=== PATIENT | female | born 1985 | race Caucasian/White ===

== ENCOUNTER 2021-10-08 10:16 | Inpatient (IN) | payer OTHER, MEDICAID, SELFPAY ==
[2021-10-08 10:29] VITALS: BP 134/97; BP 160/90; PULSE 100; PULSE 120; RESP 16; TEMP 36.1; O2SAT 98; O2SAT 99; BMI 29.9
--- NOTE | 2021-10-08 11:00 | PC.NURSE ---
This RN took a call from patient's friend/coworker who expresses concern over patient's current behavior. Per friend patient is normally very professional and put together. For the last few days patient has been acting abnormally and appears manic .
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
[2021-10-08 12:00] VITALS: BP 126/86; PULSE 100; RESP 16; O2SAT 99
--- NOTE | 2021-10-08 12:00 | PC.NURSE ---
Patient is alert and oriented. Thought and speech pattern seems somewhat erratic at times. respirations regular and even. Skin PWD. Patient is well kept, well appearing. Patient at first was reluctant to any diagnostics, at the bedside, patient's friend/supervisor toy assembly also here to express concerns. patient agreeable to some labwork and behavioral health consult.
[2021-10-08 12:18] LABS: Basophils Absolute Auto 0.1 X10*3/uL (0.0-0.2); Basophils Percent Auto 0.7 % (0-2); Eosinophils Absolute Auto 0.1 X10*3/uL (0.0-0.4); Eosinophils Percent Auto 0.6 % (0-4); Hematocrit 38.8 % (37.0-47.0); Hemoglobin 13.2 g/dl (12.0-16.0); Imm Gran Abs Auto 0.06 X10*3/uL (0.00-0.03); Imm Gran Pct Auto 0.4 % (0.0-0.4); Lymphocytes Absolute Auto 3.6 X10*3/uL (1.2-4.9); Lymphocytes Percent Auto 25.1 % (20-40); MANUAL DIFF FLAG NO; Mean Corpuscular Hemoglobin 28.8 pg (27.0-33.0); Mean Corpuscular Volume 84.7 fL (80.0-98.0); Mean Platelet Volume 9.9 fL (9.4-12.3); Monocytes Absolute Auto 0.9 X10*3/uL (0.1-1.2); Monocytes Percent Auto 6.4 % (2-11); Neutrophils Absolute Auto 9.7 x10*3/uL (2.0-8.3); Neutrophils Percent Auto 66.8 % (45-73); Platelet Count 335 X10*3/uL (160-400); Red Blood Count 4.58 X10*6/uL (4.20-5.50); Red Cell Distribution Width 14.2 % (11.0-16.0); White Blood Count 14.5 X10*3/uL (4.8-10.8)
[2021-10-08 12:34] LABS: COVID-19 Test Negative (Negative)
[2021-10-08 12:46] LABS: Ethanol < 10 mg/dL
[2021-10-08 12:48] LABS: Alanine Aminotransferase 26 U/L (0-31); Albumin Level 4.8 g/dL (3.5-5.0); Alkaline Phosphatase 108 U/L (39-117); Anion Gap 13 (12-20); Aspartate Amino Transferase 26 U/L (5-31); Bilirubin Direct 0.2 mg/dL (0.0-0.5); Bilirubin Total 0.6 mg/dL (0.0-1.0); Blood Urea Nitrogen 8 mg/dL (9-16); Calcium 9.5 mg/dL (8.4-10.2); Carbon Dioxide 24 mmol/L (22-29); Chloride 106 mmol/L (96-108); Creatinine Clr Calc Pharmacy 105.5; Estimated Glomerular Filt Rate > 60; Glucose Random 106 mg/dL (60-115); Potassium 4.4 mmol/L (3.3-5.1); Sodium 139 mmol/L (135-145); Total Protein 7.6 g/dL (6.5-8.0)
[2021-10-08 14:20] VITALS: BP 141/82; PULSE 90; RESP 15; O2SAT 98
[2021-10-08 15:51] LABS: Appearance Urine CLEAR; Color Urine YELLOW; Glucose Urine UA NEG (NEG); Leukocyte Esterase Urine NEG (NEG); Nitrite Urine NEG (NEG); PH 7.5 (5.0-8.0); Urine Blood NEG (NEG); Urine Ketones NEG (NEG); Urine Protein NEG (NEG-TRACE)
[2021-10-08 15:55] LABS: UPreg QC Valid YES; Urine Pregnancy NEGATIVE (NEGATIVE)
[2021-10-08 16:04] LABS: Barbiturates, Urine Not Detected (Not Detect); Benzodiazepines Screen Urine Not Detected (Not Detect); Cannabinoid Screen Urine POSITIVE (Not Detect); Cocaine Screen Urine Not Detected (Not Detect); Fentanyl, urine Not Detected (Not Detect); Opiate Screen Urine Not Detected (Not Detect); Phencyclidine Screen Urine Not Detected (Not Detect)
[2021-10-08 16:08] LABS: Amphetamine Screen Urine Not Detected (Not Detect)
[2021-10-08] MEDS: Omeprazole 20 MG CAPSULE.DR PO (20:52)
[2021-10-08] MEDS: hydrOXYzine HCL 50 MG TABLET 100 MG PO (21:24)
[2021-10-08] MEDS: traZODone HCL 50 MG TABLET PO (21:24)
[2021-10-09 03:28] VITALS: BP 137/82; PULSE 74; RESP 16; TEMP 36.2; O2SAT 99
--- NOTE | 2021-10-09 06:19 | PC.NURSE ---
Patient slept through the night, no distress observed/reported, behavior erratic but non concerning, medication compliant, patient was assessed by care team, disposition pending, patient will be reevaluated by care team in the morning, alert and oriented x 4, VSS, will continue to monitor.
--- NOTE | 2021-10-09 07:06 | PC.NURSE ---
patient appears to remain at rest, periodically requests assistance to makes phone calls, appears in no distress. socializing w peers ad marissa.
[2021-10-09] MEDS: lamoTRIgine 25 MG TABLET 150 MG PO (08:01)
[2021-10-09] MEDS: ARIPiprazole 10 MG TABLET PO (08:02)
[2021-10-09 09:12] VITALS: BP 145/90; PULSE 74; RESP 16; TEMP 36.6; O2SAT 98
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
--- NOTE | 2021-10-09 15:00 | PHA.MEDREC ---
Pharmacy Consult ? Medication Reconciliation Pharmacy has reviewed the medication reconciliation by
[2021-10-09 15:55] VITALS: BP 134/91; PULSE 84; RESP 16; TEMP 36.6; O2SAT 99; BMI 30.2
[2021-10-09 18:52] VITALS: BP 109/78; PULSE 96; RESP 16; TEMP 36.4; O2SAT 98
[2021-10-09] MEDS: Lithium Carbonate ER 450 MG TABLET.ER PO (19:39)
--- NOTE | 2021-10-09 21:15 | PC.ADMIT ---
Pt is a 35years old female admitted on CV for Bipolar. Pt is alert and oriented x4, Covid negative, Tox screen positive for THC. Pt was accompanied by who expressed concerns about Pt going home. Pt reports feeling anxious, denies SI/HI. Pt denies AH/VH at this time. Pt endorsed smoking marijuana and cigarette occasionally. Speech is normal with regular rhythm, tone and yesica. Pt is calm and cooperative, mood is labile with intense eye contact. Pt has a fair affect and showing bubbly mood. Insight and judgment are poor at this time. Admission
[2021-10-09] MEDS: traZODone HCL 50 MG TABLET PO (22:19)
[2021-10-10 06:00] VITALS: BP 119/70; PULSE 82; RESP 18; TEMP 36.6; O2SAT 99
[2021-10-10] MEDS: ARIPiprazole 15 MG TABLET PO (08:18)
[2021-10-10] MEDS: hydrOXYzine HCL 50 MG TABLET 100 MG PO ×2 (08:18→17:37)
[2021-10-10] MEDS: lamoTRIgine 25 MG TABLET 150 MG PO (08:18)
[2021-10-10 08:45] LABS: Estimated Average Glucose 91 mg/dL; Hemoglobin A1c % 4.8 %
[2021-10-10 09:00] LABS: Cholesterol 170 mg/dL; HDL Cholesterol 43 mg/dL; LDL Cholesterol Calculated 90 mg/dl; Magnesium 2.1 mg/dL (1.6-2.6); Triglycerides 186 mg/dL
[2021-10-10 09:07] LABS: Free T4 (Free Thyroxine) 1.24 ng/dL (0.71-1.85); Thyroid Stimulating Hormone 1.84 uIU/mL (0.32-4.0)
[2021-10-10 09:26] LABS: Folate 15.4 ng/mL (> or = 4.0); Vitamin B12 > 2000 pg/mL (200-900)
[2021-10-10 16:32] VITALS: BP 133/83; PULSE 83; TEMP 37; O2SAT 100
[2021-10-10] MEDS: traZODone HCL 50 MG TABLET PO (20:45)
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
[2021-10-11] MEDS: hydrOXYzine HCL 50 MG TABLET 100 MG PO (05:12)
[2021-10-11] MEDS: ARIPiprazole 15 MG TABLET PO (08:24)
[2021-10-11] MEDS: lamoTRIgine 25 MG TABLET 150 MG PO (08:24)
[2021-10-11 09:30] VITALS: BP 137/83; PULSE 92; TEMP 36.5
[2021-10-11 19:50] VITALS: BP 115/71; PULSE 77; TEMP 36.1; O2SAT 100
[2021-10-11] MEDS: metFORMIN HCl ER 500 MG TAB.ER.24H PO (20:44)
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
[2021-10-12] MEDS: hydrOXYzine HCL 50 MG TABLET 100 MG PO ×2 (01:33→21:26)
[2021-10-12] MEDS: traZODone HCL 50 MG TABLET PO ×2 (01:33→21:25)
[2021-10-12 06:00] VITALS: BP 138/85; PULSE 96; RESP 18; TEMP 36.7; O2SAT 98
[2021-10-12] MEDS: ARIPiprazole 15 MG TABLET PO (09:02)
[2021-10-12] MEDS: lamoTRIgine 25 MG TABLET 150 MG PO (09:02)
--- NOTE | 2021-10-12 10:16 | P.PNPSI_ITS ---
Subjective Subjective Date of Service: 10/12/21 Reason For Visit: Bipolar disorder Subjective Notes: [place] Warning and Conditional Voluntary Interim History: Patient seen and discussed with team. Patient evaluated today and upon interview she says she doesnt feel comfortable here, wants to go home. Has been med adherent. Feels safe, denies SI/SIB. Says her visited. Says she is sleeping. Pleasant, cooperative, found napping in her room. In the milieu, patient is safe and appropriate in behavior. Denies irritability or assaultive ideation. Denies A/VH. Medication Compliance: Yes Side effects from medications: No Attending Groups: Intermittent Review of Systems Acute medical concerns: No Medical Review of Systems: unchanged Mental Status Exam Mental Status Exam Narrative: Appearance: Appropriate Patient Orientation: Person, Place, Time and Situation Level of Consciousness: Restless and Alert Patient Behavior: Talkative, Hyperactive, Cooperative, Restless, Wandering, Anxious, Distractible, Good Eye Contact and Impulsive Mood Description: Cheerful and Labile Affect Description: Labile Patient Cognition Impaired: No Ability to Follow Directions: Good Speech Pattern: Spontaneous Speech and Pressured Memory Description: Intact Hallucinations: None Delusions: Not Present and Grandiose (mild) Perceptual Disturbances: Derealization Thought Process: Distracted Thought Content: positive for Racing and positive for Tangential Depressive Symptoms: Increased Irritability Abnormal Motor Activity Signs and Symptoms: Restlessness Judgment: Fair Diagnostics Vital Signs (24Hr): Vital Signs - 24 hr 10/11/21 19:50 10/12/21 06:00 Temperature 96.9 F 98.1 F Pulse Rate 77 96 Respiratory Rate 18 Blood Pressure 115/71 138/85 Pulse Oximetry 100 98 Oxygen Delivery Method Room Air Room Air BMI result Body Mass Index 30.2 Labs Results: 10/08/21 12:12 10/08/21 12:12 Medications Medications Current Medications Acetaminophen (Acetaminophen 325 Mg Tablet) 650 mg PO Q6H PRN PRN Reason: Headache/Pain Mild Scale (1-3) Al Hydroxide/Mg Hydroxide (Magnesium Hydrox/Alum Hydrox 30 Ml Oral.Susp) 30 ml PO Q6H PRN PRN Reason: Heartburn/Nausea Aripiprazole (Aripiprazole 15 Mg Tablet) 15 mg PO DAILY TARI Last Admin: 10/12/21 09:02 Dose: 15 mg Hydroxyzine HCl (Hydroxyzine Hcl 50 Mg Tablet) 100 mg PO BID PRN PRN Reason: Anxiety Last Admin: 10/12/21 01:33 Dose: 100 mg Lamotrigine (Lamotrigine 25 Mg Tablet) 150 mg PO DAILY TARI Last Admin: 10/12/21 09:02 Dose: 150 mg Magnesium Hydroxide (Milk Of Magnesia 30 Ml Oral.Susp) 30 ml PO DAILY PRN PRN Reason: Constipation Metformin HCl (Metformin Hcl Er 500 Mg Tab.Er.24h) 500 mg PO BEDTIME TARI Last Admin: 10/11/21 20:44 Dose: 500 mg Trazodone HCl (Trazodone Hcl 50 Mg Tablet) 50 mg PO BEDTIME PRN PRN Reason: Insomnia Last Admin: 10/12/21 01:33 Dose: 50 mg Allergies Allergies Allergy/AdvReac Type Severity Reaction Status Date / Time Penicillins [PENICILLINS] Allergy Unknown UNKNOWN Verified 10/08/21 23:06 topiramate [From TOPAMAX] Allergy Unknown UNKNOWN Verified 10/08/21 23:06 Assessment & Plan Assessment & Plan (1) Bipolar affective psychosis: Status: Acute Code(s): F31.9 - Bipolar disorder, unspecified Plan Manic episode. Suggest admission, agrees. Pt to consider Increase Abilify to 15 mg daily [place] ER 450 mg HS 10/11: Pt declines lithium, refusing. Per staff, pt did not sleep all night, however pt denies this and says she has been sleeping and napping. Reports benefit on hydroxyzine and trazodone for sleep. Tolerating abilify increase but concerned with wt gain, willing to trial metformin. 10/12: Utilizing hydroxyzine, sleep improved. Tolerating medications, continue to monitor abilify for benefit. I spent minutes with the patient and/or on the patient floor today, greater than?50% of which was spent counseling/coordinating care. Patient educated on: medication risk/benefits and therapeutic strategies Reason for contiued inpatient stay Substantial Risk for: med/psych decompensation
--- NOTE | 2021-10-12 10:16 | HO.PSYCHPN ---
Subjective Subjective Date of Service: 10/11/21 Reason For Visit: Bipolar disorder Subjective Notes: [place] Warning and Conditional Voluntary Healthcare Proxy: No Guardianship: No Medical Problems Affecting Mental Status: No Interim History: Patient seen and discussed with team. Patient evaluated today and upon interview Manic, didnt sleep last night Feeling better, sleep is important. Trazodone is working, hydroxzyine is working.? 2020- most of the time feels hungry.? Doesnt want lithium Wants metformin Denies AH, no si/sib, nothing, no anxiety. Energy is good in the day but sleeping.? In the milieu, patient is safe and appropriate in behavior. Denies SI/SIB/HI upon inquiry. Denies irritability or assaultive ideation. Says he feels safe. Diagnostics Vital Signs (24Hr): Vital Signs - 24 hr 10/11/21 19:50 10/12/21 06:00 Temperature 96.9 F 98.1 F Pulse Rate 77 96 Respiratory Rate 18 Blood Pressure 115/71 138/85 Pulse Oximetry 100 98 Oxygen Delivery Method Room Air Room Air BMI result Body Mass Index 30.2 Labs Results: 10/08/21 12:12 10/08/21 12:12 Medications Medications Current Medications Acetaminophen (Acetaminophen 325 Mg Tablet) 650 mg PO Q6H PRN PRN Reason: Headache/Pain Mild Scale (1-3) Al Hydroxide/Mg Hydroxide (Magnesium Hydrox/Alum Hydrox 30 Ml Oral.Susp) 30 ml PO Q6H PRN PRN Reason: Heartburn/Nausea Aripiprazole (Aripiprazole 15 Mg Tablet) 15 mg PO DAILY TARI Last Admin: 10/12/21 09:02 Dose: 15 mg Hydroxyzine HCl (Hydroxyzine Hcl 50 Mg Tablet) 100 mg PO BID PRN PRN Reason: Anxiety Last Admin: 10/12/21 01:33 Dose: 100 mg Lamotrigine (Lamotrigine 25 Mg Tablet) 150 mg PO DAILY TARI Last Admin: 10/12/21 09:02 Dose: 150 mg Magnesium Hydroxide (Milk Of Magnesia 30 Ml Oral.Susp) 30 ml PO DAILY PRN PRN Reason: Constipation Metformin HCl (Metformin Hcl Er 500 Mg Tab.Er.24h) 500 mg PO BEDTIME TARI Last Admin: 10/11/21 20:44 Dose: 500 mg Trazodone HCl (Trazodone Hcl 50 Mg Tablet) 50 mg PO BEDTIME PRN PRN Reason: Insomnia Last Admin: 10/12/21 01:33 Dose: 50 mg Allergies Allergies Allergy/AdvReac Type Severity Reaction Status Date / Time Penicillins [PENICILLINS] Allergy Unknown UNKNOWN Verified 10/08/21 23:06 topiramate [From TOPAMAX] Allergy Unknown UNKNOWN Verified 10/08/21 23:06 Assessment & Plan Assessment & Plan (1) Bipolar affective psychosis: Status: Acute Code(s): F31.9 - Bipolar disorder, unspecified Plan Manic episode. Suggest admission, agrees. Pt to consider Increase Abilify to 15 mg daily [place] ER 450 mg HS I spent minutes with the patient and/or on the patient floor today, greater than?50% of which was spent counseling/coordinating care.
[2021-10-12 18:00] VITALS: BP 130/91; PULSE 99; RESP 18; TEMP 37; O2SAT 100
[2021-10-12] MEDS: Acetaminophen 325 MG TABLET 650 MG PO (19:24)
[2021-10-12] MEDS: metFORMIN HCl ER 500 MG TAB.ER.24H PO (21:25)
[2021-10-13 06:00] VITALS: BP 128/89; PULSE 87; RESP 16; TEMP 36.9; O2SAT 99
[2021-10-13] MEDS: ARIPiprazole 15 MG TABLET PO (08:19)
[2021-10-13] MEDS: lamoTRIgine 25 MG TABLET 150 MG PO (08:19)
[2021-10-13] MEDS: hydrOXYzine HCL 50 MG TABLET 100 MG PO ×2 (15:10→21:18)
--- NOTE | 2021-10-13 17:24 | P.PNPSI_ITS ---
Subjective Subjective Date of Service: 10/14/21 Reason For Visit: Bipolar disorder Subjective Notes: [place] Warning and Conditional Voluntary Healthcare Proxy: No Guardianship: No Medical Problems Affecting Mental Status: No Interim History: Patient seen and discussed with team. Patient evaluated today and upon interview she reports she discussed with SW about discharge tomorrow. Continues to have some GI SE from metformin but wants to continue trial for metabolic SE. Her visited twice today. Says she is feeling better, feels safe, no voices, no nothing. Insightful about her h ypomanic/ manic episodes. In the milieu, patient is safe and appropriate in behavior. Denies SI/SIB/HI upon inquiry. Denies irritability or assaultive ideation. Mental Status Exam Mental Status Exam Narrative: Appearance: Appropriate Patient Orientation: Person, Place, Time and Situation Level of Consciousness: Restless and Alert Patient Behavior: Talkative, Hyperactive, Cooperative, Restless, Wandering, Anxious, Distractible, Good Eye Contact and Impulsive Mood Description: Cheerful and Labile Affect Description: Labile Patient Cognition Impaired: No Ability to Follow Directions: Good Speech Pattern: Spontaneous Speech and Pressured Memory Description: Intact Hallucinations: None Delusions: Not Present and Grandiose (mild) Perceptual Disturbances: Derealization Thought Process: Distracted Thought Content: positive for Racing and positive for Tangential Depressive Symptoms: Increased Irritability Abnormal Motor Activity Signs and Symptoms: Restlessness Judgment: Fair Diagnostics Vital Signs (24Hr): Vital Signs - 24 hr 10/12/21 18:00 10/13/21 06:00 Temperature 98.6 F 98.4 F Pulse Rate 99 87 Respiratory Rate 18 16 Blood Pressure 130/91 H 128/89 Pulse Oximetry 100 99 Oxygen Delivery Method Room Air BMI result Body Mass Index 30.2 Labs Results: 10/08/21 12:12 10/15/21 08:04 Medications Medications Current Medications Acetaminophen (Acetaminophen 325 Mg Tablet) 650 mg PO Q6H PRN PRN Reason: Headache/Pain Mild Scale (1-3) Last Admin: 10/12/21 19:24 Dose: 650 mg Al Hydroxide/Mg Hydroxide (Magnesium Hydrox/Alum Hydrox 30 Ml Oral.Susp) 30 ml PO Q6H PRN PRN Reason: Heartburn/Nausea Aripiprazole (Aripiprazole 15 Mg Tablet) 15 mg PO DAILY TARI Last Admin: 10/13/21 08:19 Dose: 15 mg Hydroxyzine HCl (Hydroxyzine Hcl 50 Mg Tablet) 100 mg PO BID PRN PRN Reason: Anxiety Last Admin: 10/13/21 15:10 Dose: 100 mg Lamotrigine (Lamotrigine 25 Mg Tablet) 150 mg PO DAILY [facility] Last Admin: 10/13/21 08:19 Dose: 150 mg Magnesium Hydroxide (Milk Of Magnesia 30 Ml Oral.Susp) 30 ml PO DAILY PRN PRN Reason: Constipation Metformin HCl (Metformin Hcl Er 500 Mg Tab.Er.24h) 500 mg PO BEDTIME TARI Last Admin: 10/12/21 21:25 Dose: 500 mg Trazodone HCl (Trazodone Hcl 50 Mg Tablet) 50 mg PO BEDTIME PRN PRN Reason: Insomnia Last Admin: 10/12/21 21:25 Dose: 50 mg Allergies Allergies Allergy/AdvReac Type Severity Reaction Status Date / Time Penicillins [PENICILLINS] Allergy Unknown UNKNOWN Verified 10/08/21 23:06 topiramate [From TOPAMAX] Allergy Unknown UNKNOWN Verified 10/08/21 23:06 Assessment & Plan Assessment & Plan (1) Bipolar affective psychosis: Status: Acute Code(s): F31.9 - Bipolar disorder, unspecified Plan Manic episode. Suggest admission, agrees. Pt to consider Increase Abilify to 15 mg daily [place] ER 450 mg HS 10/11: Pt declines lithium, refusing. Per staff, pt did not sleep all night, however pt denies this and says she has been sleeping and napping. Reports benefit on hydroxyzine and trazodone for sleep. Tolerating abilify increase but concerned with wt gain, willing to trial metformin. 10/12: Utilizing hydroxyzine, sleep improved. Tolerating medications, continue to monitor abilify for benefit. 10/13: No med changes, pt reports feeling better, sleep is improved, progressing back to baseline. I spent minutes with the patient and/or on the patient floor today, greater than?50% of which was spent counseling/coordinating care. Patient educated on: diagnosis and therapeutic strategies Reason for contiued inpatient stay Substantial Risk for: med/psych decompensation
[2021-10-13 18:00] VITALS: BP 128/72; PULSE 82; TEMP 36.8; O2SAT 99
[2021-10-13] MEDS: traZODone HCL 50 MG TABLET PO (21:18)
[2021-10-13] MEDS: metFORMIN HCl ER 500 MG TAB.ER.24H PO (21:20)
[2021-10-14 06:00] VITALS: BP 132/88; PULSE 92; RESP 18; TEMP 36.7; O2SAT 99
[2021-10-14] MEDS: lamoTRIgine 25 MG TABLET 150 MG PO (08:27)
[2021-10-14] MEDS: ARIPiprazole 15 MG TABLET PO (08:27)
[2021-10-14] MEDS: hydrOXYzine HCL 50 MG TABLET 100 MG PO ×2 (16:00→20:00)
--- NOTE | 2021-10-14 17:24 | HO.PSYCHPN ---
Subjective Subjective Date of Service: 10/14/21 Reason For Visit: Bipolar disorder Interim History: I spoke with team. Today pt reports she feels better, her came in today twice to visit. She now denies GI distress on metformin. She says she is hoping this helps with her wt gain, as she has been told by her PCP she is overweight over 40 lbs, feels bad about this. She woke up at 3am last night, I felt anxiety and it took a while to go back to sleep. Was anxious because she wants to go home. However, overall sleep is improved and pt says her mood is better. Feeling relaxed today. Hopeful for discharge tomorrow. Medication Compliance: Yes Side effects from medications: No Attending Groups: Intermittent Review of Systems Acute medical concerns: No Medical Review of Systems: unchanged Mental Status Exam Mental Status Exam Narrative: Appearance: Appropriate Patient Orientation: Person, Place, Time and Situation Level of Consciousness: Restless and Alert Patient Behavior: Talkative, Hyperactive, Cooperative, Restless, Wandering, Anxious, Distractible, Good Eye Contact and Impulsive Mood Description: Cheerful and Labile Affect Description: Labile Patient Cognition Impaired: No Ability to Follow Directions: Good Speech Pattern: Spontaneous Speech and Pressured Memory Description: Intact Hallucinations: None Delusions: Not Present and Grandiose (mild) Perceptual Disturbances: Derealization Thought Process: Distracted Thought Content: positive for Racing and positive for Tangential Depressive Symptoms: Increased Irritability Abnormal Motor Activity Signs and Symptoms: Restlessness Judgment: Fair Diagnostics Vital Signs (24Hr): Vital Signs - 24 hr 10/13/21 18:00 10/14/21 06:00 Temperature 98.2 F 98.1 F Pulse Rate 82 92 Respiratory Rate 18 Blood Pressure 128/72 132/88 Pulse Oximetry 99 99 Oxygen Delivery Method Room Air BMI result Body Mass Index 30.2 Labs Results: 10/08/21 12:12 10/15/21 08:04 Medications Medications Current Medications Acetaminophen (Acetaminophen 325 Mg Tablet) 650 mg PO Q6H PRN PRN Reason: Headache/Pain Mild Scale (1-3) Last Admin: 10/12/21 19:24 Dose: 650 mg Al Hydroxide/Mg Hydroxide (Magnesium Hydrox/Alum Hydrox 30 Ml Oral.Susp) 30 ml PO Q6H PRN PRN Reason: Heartburn/Nausea Aripiprazole (Aripiprazole 15 Mg Tablet) 15 mg PO DAILY [facility]ARI Last Admin: 10/14/21 08:27 Dose: 15 mg Hydroxyzine HCl (Hydroxyzine Hcl 50 Mg Tablet) 100 mg PO BID PRN PRN Reason: Anxiety Last Admin: 10/14/21 16:00 Dose: 100 mg Lamotrigine (Lamotrigine 25 Mg Tablet) 150 mg PO DAILY [facility] Last Admin: 10/14/21 08:27 Dose: 150 mg Magnesium Hydroxide (Milk Of Magnesia 30 Ml Oral.Susp) 30 ml PO DAILY PRN PRN Reason: Constipation Metformin HCl (Metformin Hcl Er 500 Mg Tab.Er.24h) 500 mg PO BEDTIME [facility] Last Admin: 10/13/21 21:20 Dose: 500 mg Trazodone HCl (Trazodone Hcl 50 Mg Tablet) 50 mg PO BEDTIME MRX1 PRN PRN Reason: Insomnia Last Admin: 10/13/21 21:18 Dose: 50 mg Allergies Allergies Allergy/AdvReac Type Severity Reaction Status Date / Time Penicillins [PENICILLINS] Allergy Unknown UNKNOWN Verified 10/08/21 23:06 topiramate [From TOPAMAX] Allergy Unknown UNKNOWN Verified 10/08/21 23:06 Assessment & Plan Assessment & Plan (1) Bipolar affective psychosis: Status: Acute Code(s): F31.9 - Bipolar disorder, unspecified Plan Manic episode. Suggest admission, agrees. Pt to consider Increase Abilify to 15 mg daily [place] ER 450 mg HS 10/11: Pt declines lithium, refusing. Per staff, pt did not sleep all night, however pt denies this and says she has been sleeping and napping. Reports benefit on hydroxyzine and trazodone for sleep. Tolerating abilify increase but concerned with wt gain, willing to trial metformin. 10/12: Utilizing hydroxyzine, sleep improved. Tolerating medications, continue to monitor abilify for benefit. 10/13: No med changes, pt reports feeling better, sleep is improved, progressing back to baseline. 10/14: No med changes, pt looking forward to discharge tomorrow I spent minutes with the patient and/or on the patient floor today, greater than?50% of which was spent counseling/coordinating care. Patient educated on: medication risk/benefits Reason for contiued inpatient stay Substantial Risk for: med/psych decompensation
[2021-10-14 18:00] VITALS: BP 130/75; PULSE 90; TEMP 36.8; O2SAT 100
[2021-10-14] MEDS: metFORMIN HCl ER 500 MG TAB.ER.24H PO (20:00)
[2021-10-14] MEDS: traZODone HCL 50 MG TABLET PO (20:00)
[2021-10-15 06:00] VITALS: BP 116/71; PULSE 84; RESP 16; TEMP 37.1; O2SAT 97
[2021-10-15] MEDS: lamoTRIgine 25 MG TABLET 150 MG PO (08:18)
[2021-10-15] MEDS: ARIPiprazole 15 MG TABLET PO (08:19)
[2021-10-15 09:09] LABS: Creatinine Clr Calc Pharmacy 111.5; Estimated Glomerular Filt Rate > 60
[2021-10-15] MEDS: hydrOXYzine HCL 50 MG TABLET 100 MG PO (09:32)
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
== END 2021-10-15 13:17 | disposition home or self-care (01) | DRG 753 ==
LOC: HO.ED 17:33 → HO.PM5 10-09 14:51
PROVIDERS: Clinical Nurse Specialist Psychiatric/Mental Health, Adult; Admitting Provider Psychiatry & Neurology Psychiatry; Emergency Provider Emergency Medicine; Visit Provider Psychiatry & Neurology Psychiatry
DX: F31.81 Bipolar II disorder (principal); F17.210 Nicotine dependence, cigarettes, uncomplicated; I10 Essential (primary) hypertension; Z20.822 Contact with and (suspected) exposure to COVID-19; Z71.6 Tobacco abuse counseling; Z88.0 Allergy status to penicillin; Z88.8 Allergy status to other drugs, medicaments and biological substances; Z79.84 Long term (current) use of oral hypoglycemic drugs; Z79.899 Other long term (current) drug therapy
CPT/HCPCS: 36415; 80048; 80061; 80076; 80307; 81003; 81025; 82077; 82565; 82607; 82746; 83036; 83735; 84439; 84443; 85025; 87635; 99285

== ENCOUNTER 2022-02-17 15:23 | Inpatient (IN) | payer OTHER, MEDICAID, SELFPAY ==
--- NOTE | ~2022-02-17 | US_ITS ---
EXAMINATION: US RETROPERITONEAL LIMITED (RENAL ONLY) CLINICAL INFORMATION: Pain. COMPARISON: None TECHNIQUE: Real-time imaging of the kidneys. FINDINGS: RIGHT KIDNEY: 10.1 x 4.5 x 5.3 cm (SAG x AP x TRV). The kidney is normal in size, contour, and echogenicity. Renal cortical thickness is normal. No calculi or focal parenchymal lesions. No hydronephrosis. LEFT KIDNEY: 9.8 x 5.3 x 5.3 cm (SAG x AP x TRV). The kidney is normal in size, contour, and echogenicity. Renal cortical thickness is normal. No calculi or focal parenchymal lesions. No hydronephrosis. US/US renal BI IMPRESSION: No hydronephrosis or nephrolithiasis.
--- NOTE | ~2022-02-17 | CT_ITS ---
EXAMINATION: CT ABDOMEN AND PELVIS WITHOUT CONTRAST CLINICAL INFORMATION: Nausea and vomiting. COMPARISON: None TECHNIQUE: Multidetector volumetric imaging was performed from the superior aspect of the liver through the pubic symphysis. Sagittal and coronal reformatted images were obtained on the technologist's workstation. This CT examination was performed using dose optimization techniques as appropriate, variously including the following: *Automated exposure control *Adjustment of mA and/or kV according to patient size (this includes techniques or standardized protocols for targeted exams where dose is matched to indication/reason for exam; i.e. extremities or head) *Use of iterative reconstruction technique DLP: 611 mGy-cm FINDINGS: LUNG BASES: The visualized lung bases are unremarkable. LIVER, GALLBLADDER, AND BILIARY TREE: The liver is normal in size, shape, and attenuation. No focal hepatic lesion or biliary ductal dilatation is present. The gallbladder is unremarkable with no evidence of radiopaque gallstones, gallbladder wall thickening, or obvious pericholecystic inflammatory changes. PANCREAS: Unremarkable. SPLEEN: Unremarkable. ADRENAL GLANDS: Unremarkable. KIDNEYS AND URETERS: The kidneys are normal in size, shape, and attenuation. No hydronephrosis, hydroureter, or calculi seen. No perinephric stranding. BLADDER: Unremarkable. GASTROINTESTINAL TRACT: No acute abnormality of the bowel. There is no bowel wall thickening /edema. There is no bowel obstruction. There is a moderate to large volume of stool in the colon. The appendix is normal . The small bowel loops are unremarkable. The stomach is normal. There is no hiatal hernia. ABDOMINAL WALL: No significant hernia is appreciated. LYMPH NODES: Normal. VASCULAR: Unremarkable. PELVIC VISCERA: Pelvic mass measuring 8.3 x 7.6 x 8.1 cm at the mid anterior pelvis. This contains fatty components and fluid as well as a small calcification. This is consistent with a dermoid. Likely emanating from the right adnexa. Uterus and left ovary displaced toward the left side of the pelvis by this mass. Trace fluid in the cul-de-sac. OSSEOUS STRUCTURES: Unremarkable. CT/CT abdomen pelvis wo IV con IMPRESSION: Pelvic mass consistent with a dermoid. Fleischner guidelines were followed.
[2022-02-17 15:53] VITALS: BP 126/90; BP 145/83; PULSE 100; PULSE 92; RESP 18; TEMP 37.1; O2SAT 100; O2SAT 99; BMI 31.1
[2022-02-17 16:37] LABS: COVID-19 Test Negative (Negative); IDNOW Serial# 55D5AD1C
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
[2022-02-17 17:07] LABS: Amphetamine Screen Urine Not Detected (Not Detect); Barbiturates, Urine Not Detected (Not Detect); Benzodiazepines Screen Urine Not Detected (Not Detect); Cannabinoid Screen Urine POSITIVE (Not Detect); Cocaine Screen Urine Not Detected (Not Detect); Fentanyl, urine Not Detected (Not Detect); Opiate Screen Urine Not Detected (Not Detect); Phencyclidine Screen Urine Not Detected (Not Detect)
[2022-02-17] MEDS: Nicotine Polacrilex 2 MG GUM BUCCAL (18:37)
[2022-02-17 19:56] LABS: Basophils Absolute Auto 0.1 X10*3/uL (0.0-0.2); Basophils Percent Auto 0.7 % (0-2); Eosinophils Absolute Auto 0.1 X10*3/uL (0.0-0.4); Eosinophils Percent Auto 0.6 % (0-4); Hemoglobin 13.7 g/dl (12.0-16.0); Imm Gran Abs Auto 0.05 X10*3/uL (0.00-0.03); Imm Gran Pct Auto 0.3 % (0.0-0.4); Lymphocytes Absolute Auto 6.4 X10*3/uL (1.2-4.9); Lymphocytes Percent Auto 43.5 % (20-40); MANUAL DIFF FLAG SCAN; Mean Corpuscular HGB Conc 33.4 g/dl (31.0-35.0); Mean Corpuscular Hemoglobin 28.1 pg (27.0-33.0); Mean Platelet Volume 10.8 fL (9.4-12.3); Monocytes Absolute Auto 0.9 X10*3/uL (0.1-1.2); Monocytes Percent Auto 6.2 % (2-11); Neutrophils Absolute Auto 7.1 x10*3/uL (2.0-8.3); Neutrophils Percent Auto 48.7 % (45-73); Platelet Count 347 X10*3/uL (160-400); Red Blood Count 4.88 X10*6/uL (4.20-5.50); Red Cell Distribution Width 14.6 % (11.0-16.0); SCAN SMEAR FLAG 1; White Blood Count 14.6 X10*3/uL (4.8-10.8)
[2022-02-17 19:59] LABS: SLIDE REVIEW VERIFIED
[2022-02-17 20:19] LABS: Acetaminophen LAB < 1 mcg/mL (<30); Alanine Aminotransferase 21 U/L (0-31); Albumin Level 4.9 g/dL (3.5-5.0); Alkaline Phosphatase 89 U/L (39-117); Anion Gap 16 (12-20); Aspartate Amino Transferase 22 U/L (5-31); Blood Urea Nitrogen 11 mg/dL (9-16); Calcium 9.8 mg/dL (8.4-10.2); Carbon Dioxide 26 mmol/L (22-29); Chloride 104 mmol/L (96-108); Creatinine Clr Calc Pharmacy 102.5; Estimated Glomerular Filt Rate > 60; Ethanol < 10 mg/dL; Glucose Random 89 mg/dL (60-115); Magnesium 2.1 mg/dL (1.6-2.6); Potassium 4.5 mmol/L (3.3-5.1); Salicylate < 5.0 mg/dL (15-30); Sodium 141 mmol/L (135-145); Total Protein 7.7 g/dL (6.5-8.0)
[2022-02-17 20:34] LABS: Bilirubin Total 0.3 mg/dL (0.0-1.0)
--- NOTE | 2022-02-17 20:39 | PHA.MEDREC ---
Pharmacy Consult ? Medication Reconciliation Pharmacy has completed the medication reconciliation. Reviewed med rec done by nursing
[2022-02-18] MEDS: traZODone HCL 50 MG TABLET PO ×2 (00:28→22:02)
[2022-02-18] MEDS: Nicotine Polacrilex 2 MG GUM BUCCAL ×4 (00:28→22:04)
[2022-02-18] MEDS: hydrOXYzine HCL 50 MG TABLET PO ×2 (00:28→22:02)
[2022-02-18 00:30] VITALS: BP 127/75; PULSE 74; RESP 17; TEMP 36.2; O2SAT 98
--- NOTE | 2022-02-18 06:16 | PC.NURSE ---
Patient slept through the night, no distress observed/reported, behavior non concerning, medication compliant, disposition per care team APRIL follow up, reevaluation in the morning pending psych consult, psych consult ordered, VSS. will continue to monitor.
[2022-02-18 07:33] VITALS: BP 143/86; PULSE 92; RESP 17; TEMP 36.4; O2SAT 98
[2022-02-18] MEDS: lamoTRIgine 100 MG TABLET 150 MG PO (07:57)
[2022-02-18] MEDS: ARIPiprazole 15 MG TABLET PO (07:57)
--- NOTE | 2022-02-18 09:38 | PC.NURSE ---
[facility], calm and cooperative, pleasant in convo, ate all of breakfast. took hs meds. awaiting care team f/u this am. nad.
--- NOTE | 2022-02-18 11:46 | PC.NURSE ---
care team at bedside for follow up eval
--- NOTE | 2022-02-18 15:43 | MHC.CARE ---
CARE Team speaks with pt's upon receiving a request to contact him. Mr Catracho was advised of the plan for his and what an inpatient stay most often looks like for a patient.
[2022-02-18 20:15] VITALS: BP 126/78; PULSE 90; RESP 16; TEMP 36.1; O2SAT 100
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
[2022-02-18] MEDS: metFORMIN HCl ER 500 MG TAB.ER.24H PO (22:02)
[2022-02-19 07:00] VITALS: BMI 28.7
[2022-02-19 08:15] VITALS: BP 131/82; PULSE 79; RESP 18; TEMP 36.6; O2SAT 96
[2022-02-19 08:57] LABS: Estimated Average Glucose 111 mg/dL; Hemoglobin A1c % 5.5 %
[2022-02-19] MEDS: lamoTRIgine 100 MG TABLET 150 MG PO (09:07)
[2022-02-19] MEDS: ARIPiprazole 15 MG TABLET PO (09:20)
[2022-02-19] MEDS: Nicotine Polacrilex 2 MG GUM BUCCAL (09:22)
[2022-02-19 09:27] LABS: Alanine Aminotransferase 18 U/L (0-31); Albumin Level 4.5 g/dL (3.5-5.0); Alkaline Phosphatase 77 U/L (39-117); Anion Gap 11 (12-20); Aspartate Amino Transferase 16 U/L (5-31); Bilirubin Direct < 0.2 mg/dL (0.0-0.5); Bilirubin Total 0.3 mg/dL (0.0-1.0); Blood Urea Nitrogen 9 mg/dL (9-16); Calcium 9.4 mg/dL (8.4-10.2); Carbon Dioxide 25 mmol/L (22-29); Chloride 105 mmol/L (96-108); Cholesterol 141 mg/dL; Creatinine Clr Calc Pharmacy 121.7; Estimated Glomerular Filt Rate > 60; Glucose Fasting 99 mg/dL (60-99); HDL Cholesterol 37 mg/dL; LDL Cholesterol Calculated 77 mg/dl; Potassium 4.4 mmol/L (3.3-5.1); Sodium 137 mmol/L (135-145); Total Protein 6.8 g/dL (6.5-8.0); Triglycerides 136 mg/dL
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
[2022-02-19 19:32] VITALS: BP 124/68; PULSE 70; RESP 16; TEMP 36.5; O2SAT 99
[2022-02-19] MEDS: Lithium Carbonate ER 450 MG TABLET.ER PO (20:18)
[2022-02-19] MEDS: metFORMIN HCl ER 500 MG TAB.ER.24H PO (20:18)
[2022-02-19] MEDS: hydrOXYzine HCL 50 MG TABLET PO (20:18)
[2022-02-20] MEDS: lamoTRIgine 100 MG TABLET 150 MG PO (08:19)
[2022-02-20] MEDS: ARIPiprazole 15 MG TABLET PO (08:19)
[2022-02-20] MEDS: Lithium Carbonate ER 450 MG TABLET.ER PO ×2 (08:19→20:14)
[2022-02-20 08:43] VITALS: BP 124/65; PULSE 83; RESP 17; TEMP 36.3; O2SAT 100
--- NOTE | 2022-02-20 13:32 | P.PNPSI_ITS ---
Subjective Subjective Date of Service: 02/20/22 Reason For Visit: Rosa Subjective Notes: Conditional Voluntary Interim History: Pt reports feeling less depressed, no SI/HI. she reports feeling anxious about taking lithium- education provided and printed information asked to be given by staff. She report eating and sleeping well. She signed 3 day hoping to be dis charged soon. No behavioral concerns. Medication Compliance: Yes Side effects from medications: No Attending Groups: Yes Review of Systems Review of Systems Constitutional : No Weight loss, No Fever, No Chills, No Fatigue, No Malaise ENT/Mouth : No sore throat, No Rhinorrhea Eyes: No Eye Pain, No Swelling, No Redness Cardiovascular : No Chest Pain, No SOB, No Dyspnea on Exertion, No Orthopnea, No Edema, No Palpitations Respiratory : No Cough, No Sputum, No Wheezing Gastrointestinal : No Nausea, No Vomiting, No Diarrhea, No Constipation, No abdominal Pain, No Hematochezia, No Melena Genitourinary : No Dysuria, No Urinary Frequency, No Hematuria, Musculoskeletal : No joint pain, No Myalgias, No Joint Swelling Skin : No Skin Lesions, No rash Neuro : No Weakness, No Numbness, No Dizziness, No Headache Psych : + Anxiety/Panic, + Depression, - SI/HI, -A/V/T Hallucinations All other systems reviewed and are negative Mental Status Exam Mental Status Exam Narrative: Appearance: Appropriate Patient Orientation: Person, Place, Time and Situation Level of Consciousness: Alert Patient Behavior: Talkative, Hyperactive, Cooperative, Good Eye Contact Mood Description: Cheerful Affect Description: hyper-intense, non-labile Patient Cognition Impaired: No Ability to Follow Directions: Good Speech Pattern: Spontaneous Speech withincr rate and amount Memory Description: Intact Hallucinations: None Delusions: unclear Perceptual Disturbances: denies AVH Thought Process: wandering, positive for Racing and positive for Tangential thought content: no SI/HI. Abnormal Motor Activity Signs and Symptoms: none Judgment: Fair Diagnostics Vital Signs (24Hr): Vital Signs - 24 hr 02/20/22 08:43 02/20/22 20:11 Temperature 97.3 F 97.0 F Pulse Rate 83 88 Respiratory Rate 17 16 Blood Pressure 124/65 133/68 Pulse Oximetry 100 99 Oxygen Delivery Method Room Air Room Air BMI result Body Mass Index 28.7 Labs Results: 02/17/22 19:29 02/19/22 08:35 Labs: Laboratory Results - last 48 hr 02/19/22 02/19/22 08:35 08:35 Sodium 137 Potassium 4.4 Chloride 105 Carbon Dioxide 25 Anion Gap 11 L BUN 9 Creatinine 0.75 Estim Creat Clear Calc 121.7 Estimated GFR > 60 Fasting Glucose 99 Estimat Average Glucose 111 Hemoglobin A1c % 5.5 Calcium 9.4 Total Bilirubin 0.3 Direct Bilirubin < 0.2 AST 16 ALT 18 Alkaline Phosphatase 77 Total Protein 6.8 Albumin 4.5 Triglycerides 136 Cholesterol 141 LDL Cholesterol, Calc 77 HDL Cholesterol 37 TSH 1.10 Medications Medications Current Medications Acetaminophen (Acetaminophen 325 Mg Tablet) 650 mg PO Q6H PRN PRN Reason: Headache/Pain Mild Scale (1-3) Al Hydroxide/Mg Hydroxide (Magnesium Hydrox/Alum Hydrox 30 Ml Oral.Susp) 30 ml PO Q6H PRN PRN Reason: Heartburn/Nausea Last Admin: 02/20/22 20:17 Dose: 30 ml Aripiprazole (Aripiprazole 15 Mg Tablet) 15 mg PO DAILY [facility] Last Admin: 02/20/22 08:19 Dose: 15 mg Hydroxyzine HCl (Hydroxyzine Hcl 50 Mg Tablet) 50 mg PO TID PRN PRN Reason: Anxiety Last Admin: 02/19/22 20:18 Dose: 50 mg Lamotrigine (Lamotrigine 100 Mg Tablet) 150 mg PO DAILY [facility] Last Admin: 02/20/22 08:19 Dose: 150 mg Castella Carbonate (Castella Carbonate Er 450 Mg Tablet.Er) 450 mg PO BID [facility] Last Admin: 02/20/22 20:14 Dose: 450 mg Magnesium Hydroxide (Milk Of Magnesia 30 Ml Oral.Susp) 30 ml PO DAILY PRN PRN Reason: Constipation Metformin HCl (Metformin Hcl Er 500 Mg Tab.Er.24h) 500 mg PO BEDTIME [facility] Last Admin: 02/20/22 20:14 Dose: 500 mg Nicotine Polacrilex (Nicotine Polacrilex 2 Mg Gum) 2 mg BUCCAL Q2H PRN PRN Reason: anxiety/restlessness Last Admin: 02/20/22 20:18 Dose: 2 mg Trazodone HCl (Trazodone Hcl 50 Mg Tablet) 50 - 100 mg PO BEDTIME PRN PRN Reason: insomnia Last Admin: 02/20/22 20:16 Dose: 50 mg Allergies Allergies Allergy/AdvReac Type Severity Reaction Status Date / Time Penicillins [PENICILLINS] Allergy Unknown UNKNOWN Verified 10/08/21 23:06 topiramate [From TOPAMAX] Allergy Unknown UNKNOWN Verified 10/08/21 23:06 Assessment & Plan Assessment & Plan (1) Bipolar disorder: Status: Acute Code(s): F31.9 - Bipolar disorder, unspecified Plan Manic episode. continue Abilify to 15 mg daily and lamictal 150 daily. add Castella ER 450 mg BID. 02/20 continue tx. I spent minutes with the patient and/or on the patient floor today, greater than?50% of which was spent counseling/coordinating care. Reason for contiued inpatient stay Substantial Risk for: harm to self
[2022-02-20] MEDS: Nicotine Polacrilex 2 MG GUM BUCCAL ×2 (14:41→20:18)
[2022-02-20 20:11] VITALS: BP 133/68; PULSE 88; RESP 16; TEMP 36.1; O2SAT 99
[2022-02-20] MEDS: metFORMIN HCl ER 500 MG TAB.ER.24H PO (20:14)
[2022-02-20] MEDS: traZODone HCL 50 MG TABLET PO (20:16)
[2022-02-20] MEDS: Magnesium Hydrox/Alum Hydrox 30 ML ORAL.SUSP PO (20:17)
[2022-02-21] MEDS: Nicotine Polacrilex 2 MG GUM BUCCAL (06:23)
[2022-02-21 08:30] VITALS: BP 139/81; PULSE 94; RESP 18; TEMP 36.6; O2SAT 100
[2022-02-21] MEDS: lamoTRIgine 100 MG TABLET 150 MG PO (08:49)
[2022-02-21] MEDS: Lithium Carbonate ER 450 MG TABLET.ER PO ×2 (08:49→22:38)
[2022-02-21] MEDS: ARIPiprazole 15 MG TABLET PO (08:49)
--- NOTE | 2022-02-21 14:26 | P.PNPSI_ITS ---
Subjective Subjective Date of Service: 02/21/22 Reason For Visit: Rosa Medical Problems Affecting Mental Status: No Interim History: Met with patient. Chart reviewed. Discussed with Nursing. Did describe having some nausea and would like to read more about lithium. She was also apprehensive about making medication changes and did not want anything added regarding nausea. Does report that she feels better today compared to yesterday mood cruz. Sleep has been okay. Adamantly denies SI. No psychosis. Hopeful that lithium will help stabilize mood. Three-day notice in place. She does describe concerns regarding her job and hopeful she is not stigmatized due to psychiatric admissions. Also hopeful can be supportive as he may not fully appreciate mental health diagnoses. Medication Compliance: Yes Side effects from medications: No Attending Groups: Yes Review of Systems Acute medical concerns: No Review of Systems Review of Systems Unremarkable Mental Status Exam Mental Status Exam Narrative: Pleasant. Engaged. Organized articulate. Some anxiety but denies depression. No SI. No HI. No agitation or psychosis. Insight and judgment okay Diagnostics Vital Signs (24Hr): Vital Signs - 24 hr 02/20/22 20:11 02/21/22 08:30 Temperature 97.0 F 97.9 F Pulse Rate 88 94 Respiratory Rate 16 18 Blood Pressure 133/68 139/81 Pulse Oximetry 99 100 Oxygen Delivery Method Room Air Room Air BMI result Body Mass Index 28.7 Labs Results: 02/17/22 19:29 02/19/22 08:35 Medications Medications Current Medications Acetaminophen (Acetaminophen 325 Mg Tablet) 650 mg PO Q6H PRN PRN Reason: Headache/Pain Mild Scale (1-3) Al Hydroxide/Mg Hydroxide (Magnesium Hydrox/Alum Hydrox 30 Ml Oral.Susp) 30 ml PO Q6H PRN PRN Reason: Heartburn/Nausea Last Admin: 02/20/22 20:17 Dose: 30 ml Aripiprazole (Aripiprazole 15 Mg Tablet) 15 mg PO DAILY TARI Last Admin: 02/21/22 08:49 Dose: 15 mg Hydroxyzine HCl (Hydroxyzine Hcl 50 Mg Tablet) 50 mg PO TID PRN PRN Reason: Anxiety Last Admin: 02/19/22 20:18 Dose: 50 mg Lamotrigine (Lamotrigine 100 Mg Tablet) 150 mg PO DAILY TARI Last Admin: 02/21/22 08:49 Dose: 150 mg [employer] Carbonate ([employer] Carbonate Er 450 Mg Tablet.Er) 450 mg PO BID [facility] Last Admin: 02/21/22 08:49 Dose: 450 mg Magnesium Hydroxide (Milk Of Magnesia 30 Ml Oral.Susp) 30 ml PO DAILY PRN PRN Reason: Constipation Metformin HCl (Metformin Hcl Er 500 Mg Tab.Er.24h) 500 mg PO BEDTIME TARI Last Admin: 02/20/22 20:14 Dose: 500 mg Nicotine Polacrilex (Nicotine Polacrilex 2 Mg Gum) 2 mg BUCCAL Q2H PRN PRN Reason: anxiety/restlessness Last Admin: 02/21/22 06:23 Dose: 2 mg Trazodone HCl (Trazodone Hcl 50 Mg Tablet) 50 - 100 mg PO BEDTIME PRN PRN Reason: insomnia Last Admin: 02/20/22 20:16 Dose: 50 mg Allergies Allergies Allergy/AdvReac Type Severity Reaction Status Date / Time Penicillins [PENICILLINS] Allergy Unknown UNKNOWN Verified 10/08/21 23:06 topiramate [From TOPAMAX] Allergy Unknown UNKNOWN Verified 10/08/21 23:06 Assessment & Plan Assessment & Plan (1) Bipolar disorder: Status: Acute Code(s): F31.9 - Bipolar disorder, unspecified Plan Manic episode. continue Abilify to 15 mg daily and lamictal 150 daily. add [employer] ER 450 mg BID. 02/20 continue tx. 02/21/2022: No changes to current regimen I spent minutes with the patient and/or on the patient floor today, greater than?50% of which was spent counseling/coordinating care. Reason for contiued inpatient stay Substantial Risk for: harm to self
[2022-02-21] MEDS: LORazepam 1 MG TABLET PO (15:13)
[2022-02-21] MEDS: metFORMIN HCl ER 500 MG TAB.ER.24H PO (22:38)
[2022-02-21] MEDS: traZODone HCL 50 MG TABLET PO (22:38)
[2022-02-22] MEDS: Ondansetron ODT 8 MG TAB.RAPDIS TRANSLINGU ×3 (03:58→18:07)
[2022-02-22] MEDS: Acetaminophen 325 MG TABLET 650 MG PO (06:32)
[2022-02-22] MEDS: hydrOXYzine HCL 25 MG TABLET 50 MG PO (06:40)
[2022-02-22 09:00] VITALS: BP 132/72; PULSE 84; RESP 18; TEMP 36.7; O2SAT 98
--- NOTE | 2022-02-22 09:54 | PC.NURSE ---
Patient reporting nausea, right groin pain similar to that she had when she had kidney stones. Dr. Saucedo notified, orders entered as ordered.
--- NOTE | 2022-02-22 10:28 | PC.NURSE ---
Patient unable to take AM medications due to nausea. Vomited x1. Dr. Saucedo aware, patient given Zofran as ordered.
[2022-02-22 10:45] LABS: Appearance Urine Clear; Color Urine Yellow; Glucose Urine UA Negative (Negative); Leukocyte Esterase Urine Small (1+) (Negative); Nitrite Urine Negative (Negative); PH 7.5 (5.0-9.0); UMIC TRIGGER UACC YES; UPreg QC Valid YES; Urine Blood Negative (Negative); Urine Ketones Negative (Negative); Urine Pregnancy NEGATIVE (NEGATIVE); Urine Protein Negative (Neg-Trace)
[2022-02-22 11:31] LABS: Bacteria Urine Trace (None Seen); Hyaline Casts Urine 0-2 /LPF (0-2); RBC Urine 0-2 /HPF (0-2); UACC Culture Trigger YES; WBC Urine 0-5 /HPF (0-5)
[2022-02-22 12:20] VITALS: BP 143/71; PULSE 86; RESP 20; O2SAT 97
--- NOTE | 2022-02-22 12:21 | PC.NURSE ---
Patient continues to report nausea, vomiting at times. Reports only brief and transient relief from Dr. Sheryl Martínez aware, Ultrasound called to obtain time for exam.
--- NOTE | 2022-02-22 13:20 | PC.NURSE ---
Ultrasound called, state they will be able to take patient at 1330 patient aware.
--- NOTE | 2022-02-22 13:33 | PC.NURSE ---
Patient at ultrasound.
--- NOTE | 2022-02-22 14:09 | HO.PSYCHPN ---
Subjective Subjective Date of Service: 02/22/22 Reason For Visit: Rosa Interim History: Met with patient. Chart reviewed. Discussed with Nursing. Has been vomiting since last night. Right flank pain going into inguinal area. Does have a history of kidney stones. Reports this is similar, however did report that pain was slightly less this afternoon compared to this morning. Unable to keep food down. Talked about her asking for a separation last night. Hopeful she can discharge to their home and then find another place to stay for/buy a home in May 2022 and she is working with the [employer] on this. Also hopeful that he may agree to couples therapy. Tearful when discussing same. Sleep has been okay. Adamantly denies SI. No psychosis. Three-day notice in place. Medication Compliance: Yes Side effects from medications: No Attending Groups: Yes Review of Systems vomiting since last night. Right flank pain going into inguinal area. Does have a history of kidney stones. Reports this is similar, however did report that pain was slightly less this afternoon compared to this morning. Unable to keep food down Review of Systems Review of Systems vomiting since last night. Right flank pain going into inguinal area. Does have a history of kidney stones. Reports this is similar, however did report that pain was slightly less this afternoon compared to this morning. Unable to keep food down Mental Status Exam Mental Status Exam Narrative: Pleasant. Engaged. Organized articulate. Tearful when discussing asking for divorce. No SI. No HI. No agitation or psychosis. Insight and judgment okay Diagnostics Vital Signs (24Hr): Vital Signs - 24 hr 02/22/22 09:00 02/22/22 12:20 Temperature 98.1 F Pulse Rate 84 86 Respiratory Rate 18 20 Blood Pressure 132/72 143/71 H Pulse Oximetry 98 97 Oxygen Delivery Method Room Air Room Air BMI result Body Mass Index 28.7 Labs Results: 02/17/22 19:29 02/19/22 08:35 Labs: Laboratory Results - last 48 hr 02/22/22 02/22/22 10:10 10:10 Urine Color Yellow Urine Appearance Clear Urine pH 7.5 Ur Specific [place] 1.020 Urine Protein Negative Urine Glucose (UA) Negative Urine Ketones Negative Urine Blood Negative Urine Nitrite Negative Ur Leukocyte Esterase Small (1+) H Urine RBC 0-2 Urine WBC 0-5 Ur Squamous Epith Cells 3-5 Urine Bacteria Trace Hyaline Casts 0-2 Urine Test NEGATIVE Medications Medications Current Medications Acetaminophen (Acetaminophen 325 Mg Tablet) 650 mg PO Q6H PRN PRN Reason: Headache/Pain Mild Scale (1-3) Last Admin: 02/22/22 06:32 Dose: 650 mg Al Hydroxide/Mg Hydroxide (Magnesium Hydrox/Alum Hydrox 30 Ml Oral.Susp) 30 ml PO Q6H PRN PRN Reason: Heartburn/Nausea Last Admin: 02/20/22 20:17 Dose: 30 ml Aripiprazole (Aripiprazole 15 Mg Tablet) 15 mg PO DAILY [facility] Last Admin: 02/21/22 08:49 Dose: 15 mg Hydroxyzine HCl (Hydroxyzine Hcl 25 Mg Tablet) 50 mg PO TID PRN PRN Reason: Anxiety Last Admin: 02/22/22 06:40 Dose: 50 mg Lamotrigine (Lamotrigine 100 Mg Tablet) 150 mg PO DAILY [facility] Last Admin: 02/21/22 08:49 Dose: 150 mg [place] Carbonate ([place] Carbonate Er 450 Mg Tablet.Er) 450 mg PO BID [facility] Last Admin: 02/21/22 22:38 Dose: 450 mg Lorazepam (Lorazepam 1 Mg Tablet) 1 mg PO Q6H PRN PRN Reason: severe anxiety Magnesium Hydroxide (Milk Of Magnesia 30 Ml Oral.Susp) 30 ml PO DAILY PRN PRN Reason: Constipation Metformin HCl (Metformin Hcl Er 500 Mg Tab.Er.24h) 500 mg PO BEDTIME [facility] Last Admin: 02/21/22 22:38 Dose: 500 mg Nicotine Polacrilex (Nicotine Polacrilex 2 Mg Gum) 2 mg BUCCAL Q2H PRN PRN Reason: anxiety/restlessness Last Admin: 02/21/22 06:23 Dose: 2 mg Trazodone HCl (Trazodone Hcl 50 Mg Tablet) 50 - 100 mg PO BEDTIME PRN PRN Reason: insomnia Last Admin: 02/21/22 22:38 Dose: 50 mg Allergies Allergies Allergy/AdvReac Type Severity Reaction Status Date / Time Penicillins [PENICILLINS] Allergy Unknown UNKNOWN Verified 10/08/21 23:06 topiramate [From TOPAMAX] Allergy Unknown UNKNOWN Verified 10/08/21 23:06 Assessment & Plan Assessment & Plan (1) Bipolar disorder: Status: Acute Code(s): F31.9 - Bipolar disorder, unspecified Plan Manic episode. continue Abilify to 15 mg daily and lamictal 150 daily. add [place] ER 450 mg BID. 02/20 continue tx. 02/21/2022: No changes to current regimen 03/05/22: vomiting since last night. Right flank pain going into inguinal area. Does have a history of kidney stones. Reports this is similar, however did report that pain was slightly less this afternoon compared to this morning. Unable to keep food down. Preliminary read of renal ultrasound unremarkable. UA unremarkable. Will order CBC and CMP and ask for hospitalist review. Given vomiting, will also hold lithium. I spent minutes with the patient and/or on the patient floor today, greater than?50% of which was spent counseling/coordinating care. Reason for contiued inpatient stay Substantial Risk for: inability to function
--- NOTE | 2022-02-22 14:43 | PC.NURSE ---
Patient reports right groin pain now intermittent, but continues to have nausea, and occasionally vomiting. Patient encouraged to drink clear fluids as tolerated. Patient aware that MD has ordered labs, and that a hospitalist consult has been entered. Currently, patient resting in bed.
[2022-02-22 15:20] LABS: MANUAL DIFF FLAG NO
[2022-02-22 15:22] LABS: Basophils Absolute Auto 0.1 X10*3/uL (0.0-0.2); Basophils Percent Auto 0.5 % (0-2); Hemoglobin 14.7 g/dl (12.0-16.0); Imm Gran Abs Auto 0.08 X10*3/uL (0.00-0.03); Imm Gran Pct Auto 0.5 % (0.0-0.4); Lymphocytes Absolute Auto 2.8 X10*3/uL (1.2-4.9); Lymphocytes Percent Auto 16.8 % (20-40); Mean Corpuscular HGB Conc 34.2 g/dl (31.0-35.0); Mean Corpuscular Hemoglobin 27.9 pg (27.0-33.0); Mean Corpuscular Volume 81.6 fL (80.0-98.0); Mean Platelet Volume 9.9 fL (9.4-12.3); Monocytes Absolute Auto 0.6 X10*3/uL (0.1-1.2); Monocytes Percent Auto 3.3 % (2-11); Neutrophils Absolute Auto 13.2 x10*3/uL (2.0-8.3); Neutrophils Percent Auto 78.9 % (45-73); Platelet Count 347 X10*3/uL (160-400); Red Blood Count 5.27 X10*6/uL (4.20-5.50); Red Cell Distribution Width 13.9 % (11.0-16.0); White Blood Count 16.8 X10*3/uL (4.8-10.8)
[2022-02-22 15:37] LABS: Alanine Aminotransferase 19 U/L (0-31); Alkaline Phosphatase 83 U/L (39-117); Anion Gap 13 (12-20); Aspartate Amino Transferase 18 U/L (5-31); Bilirubin Total 0.5 mg/dL (0.0-1.0); Blood Urea Nitrogen 8 mg/dL (9-16); Calcium 10.1 mg/dL (8.4-10.2); Carbon Dioxide 26 mmol/L (22-29); Chloride 102 mmol/L (96-108); Creatinine Clr Calc Pharmacy 104.6; Estimated Glomerular Filt Rate > 60; Glucose Random 124 mg/dL (60-115); Potassium 4.4 mmol/L (3.3-5.1); Sodium 137 mmol/L (135-145); Total Protein 7.7 g/dL (6.5-8.0)
[2022-02-22 16:30] VITALS: BP 138/86; PULSE 88; RESP 20; TEMP 37.1; O2SAT 96
--- NOTE | 2022-02-22 16:39 | PC.NURSE ---
At this time I have sent the following [employer] text to Dr Reid, Saniya Hayden TRACK INSPECTING SUPERVISOR and Dr Saucedo. 326-2 is unable to stop vomiting throughout the day despite zofran and is now yelling with 11 pain level in right groin. ultrasound is done with unremarkable findings. WBC and ANC are high. Hosp consult is in. Please advise. Thank you
--- NOTE | 2022-02-22 16:48 | PM.EVENT ---
Event Note Date of Service: 02/22/22 Event Note: 36-year-old woman history of diabetes, chronic marijuana use, bipolar disorder with complaints nausea and vomiting. She reports that she started with some nausea about 2 days ago when lithium was initiated. This morning she started to have episodes of vomiting and abdominal pain that radiated from the epigastrium to the right flank. She denies fever, chills, diarrhea. No bloody emesis noted. She does have leukocytosis which appears to be chronic and most likely reactive to the vomiting she has no fever or signs of sepsis. Normal creatinine. Urinalysis negative for infection. Renal ultrasound is negative for hydronephrosis or renal stones. Alert oriented x3 Normal lung expansion No edema noted Abdominal CT ordered Kayla p.r.n. as patient has been on this in the past for what sounds like gastroparesis/gastritis Marcind b.i.d. Check BMP in the morning Time Spent With Patient Time: Total time managing care of this patient today ____ minutes.
--- NOTE | 2022-02-22 17:06 | PC.NURSE ---
Yi sent to CT at 1700
[2022-02-22] MEDS: Dicyclomine HCl 10 MG CAPSULE PO (18:33)
[2022-02-22 20:10] VITALS: BP 120/62; RESP 20; TEMP 37.1; O2SAT 98
[2022-02-22] MEDS: LORazepam 1 MG TABLET PO (22:05)
[2022-02-22] MEDS: traMADoL HCL 50 MG TABLET PO (22:05)
[2022-02-23 08:30] VITALS: BP 130/79; PULSE 105; RESP 18; TEMP 36.8; O2SAT 99
[2022-02-23 09:34] LABS: Anion Gap 12 (12-20); Blood Urea Nitrogen 10 mg/dL (9-16); Carbon Dioxide 26 mmol/L (22-29); Chloride 100 mmol/L (96-108); Creatinine Clr Calc Pharmacy 114.2; Estimated Glomerular Filt Rate > 60; Glucose Random 109 mg/dL (60-115); Potassium 3.9 mmol/L (3.3-5.1); Sodium 134 mmol/L (135-145)
[2022-02-23 09:35] LABS: Magnesium 2.2 mg/dL (1.6-2.6)
[2022-02-23] MEDS: hydrOXYzine HCL 25 MG TABLET 50 MG PO (10:36)
[2022-02-23] MEDS: lamoTRIgine 100 MG TABLET 150 MG PO (10:37)
[2022-02-23] MEDS: Famotidine 20 MG TABLET PO (10:37)
[2022-02-23] MEDS: ARIPiprazole 15 MG TABLET PO (10:39)
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
--- NOTE | 2022-02-23 14:52 | PC.NURSE ---
Pt ready and aware of discharge. States she will be going home with her for support. Denies S/I H/I A/H V/H instructions were provided to patient appointments and medications were reviewed Pt verbalized understanding.
== END 2022-02-23 14:30 | disposition home or self-care (01) | DRG 753 ==
LOC: HO.ED 02-18 14:24 → HO.PADLT16 02-18 17:57
PROVIDERS: Internal Medicine; Nurse Practitioner Acute Care; Physician Assistant; Psychiatry & Neurology Psychiatry; Admitting Provider Psychiatry & Neurology Psychiatry; Emergency Provider Emergency Medicine Emergency Medical Services; Visit Provider Psychiatry & Neurology Psychiatry
DX: F31.9 Bipolar disorder, unspecified (principal); E11.9 Type 2 diabetes mellitus without complications; F17.210 Nicotine dependence, cigarettes, uncomplicated; Z71.6 Tobacco abuse counseling; Z20.822 Contact with and (suspected) exposure to COVID-19; Z88.0 Allergy status to penicillin; Z88.8 Allergy status to other drugs, medicaments and biological substances; Z79.84 Long term (current) use of oral hypoglycemic drugs; Z79.899 Other long term (current) drug therapy
CPT/HCPCS: 36415; 74176; 76775; 80048; 80053; 80061; 80076; 80143; 80179; 80307; 81001; 81025; 82077; 83036; 83735; 84443; 85025; 87086; 87635; 99285

== ENCOUNTER 2022-06-28 22:04 | Inpatient (IN) | payer OTHER, SELFPAY ==
[2022-06-28 22:11] VITALS: BP 145/90; PULSE 93; RESP 18; TEMP 36.6; O2SAT 99; BMI 30.7
--- OUTSIDE RECORDS SUMMARY | 2022-06-28 22:36 | XMS_ITS | Continuity of Care Document ---
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 Role Phone Not on Staff, PCP Primary Care Physician Unavail able Encounter [facility] Date(s): 10/18/19 - 10/20/19 [facility] Inpatient [facility]ry [address] [place] [address]- [facility] Discharge Disposition: A-D/C Home Attending Physician: Marva Kent MD Admitting Physician: Marva Kent MD Referring Physician: Not on Staff, Referring MD Allergies, Adverse Reactions, Alerts Substance Reaction Severity Status penicillin Active Topamax Active Medications Abilify 15 mg oral tablet 7.5 mg, 0.5, tablet, By Mouth, Daily, # 15 tablet, Refills 0, Tot. Refills 0, Maintenance, 10/20/2011:02:00 EDT, Route to Pharmacy Electronically, [facility]/pharmacy #[id number], 166, cm, 10/20/19 8:24:00 EDT, Height, 68.5, kg, 10/18/19 19:47:00 EDT, Dry Weight Start Date: 10/20/19 Status: Ordered lamotrigine 25 mg oral tablet 75 mg, 3, tablet, By Mouth, Daily at bedtime, # 90 tablet, Refills 0, Tot. Refills 0, Maintenance, 10/20/19 12:02:00 EDT, Route to Pharmacy Electronically, [facility]/pharmacy #[id number], 166, cm, 10/20/19 8:24:00 EDT, Height, 68.5, kg, 10/18/19 19:47:00 EDT, Dry... Start Date: 10/20/19 Status: Ordered traZODone 50 mg oral tablet 50 mg, 1, tablet, By Mouth, Daily at bedtime, PRN, # 30 tablet, Refills 0, Tot. Refills 0, Maintenance, Insomnia, 10/20/19 12:02:00 EDT, Route to Pharmacy Electronically, [facility]/pharmacy #[id number], 166, cm,10/20/19 8:24:00 EDT, Height, 68.5, kg, 10/18/19 19... Start Date: 10/20/19 Status: Ordered Vistaril pamoate 50 mg oral capsule 1 capsule = 50 mg, By Mouth, 2 times a day, PRN for anxiety, # 60 capsule, 0 Refills, Maintenance, 10/20/19 12:02:00 EDT, Capsule, [facility]/pharmacy #[id number], 166, cm, 10/20/19 8:24:00 EDT, Height, 68.5, kg,10/18/19 19:47:00 EDT, Dry Weight Start Date: 10/20/19 Status: Ordered Vital Signs Most recent to oldest [Reference Range]: 1 2 3 4 Height 166 cm (10/20/19 8:23 AM) 166 cm (10/19/19 10:29 PM) 166 cm (10/19/19 8:34 AM) Weight 68.5 kg (10/18/19 7:23 PM) Oxygen Saturation [94-100 %] 98 % (10/20/19 8:23 AM) 99 % (10/19/19 10:29 PM) 100 % (10/19/19 8:34 AM) Pulse Rate [55-90 bpm] 94 bpm *H* (10/20/19 8:23 AM) 67 bpm (10/19/19 10:29 PM) 92 bpm *H* (10/19/19 8:34 AM) Body Mass Index [18.5-24.99] 24.86 (10/18/19 7:23 PM) Blood Pressure [90-138/55-84 mm Hg] 127/82mm Hg (10/20/19 8:23 AM) 110/63mm Hg (10/19/19 10:29 PM) 114/64mm Hg (10/19/19 8:34 AM) Respiratory Rate [16-30 br/min] 16 br/min (10/20/19 8:23 AM) 18 br/min (10/19/19 10:29 PM) 18 br/min (10/19/19 10:28 PM) 18 br/min (10/19/19 10:28 PM) Temperature [96.8-100.4 DegF] 99.6 DegF (10/20/19 8:23 AM) 97.7 DegF (10/19/19 10:29 PM) 97.1 DegF (10/19/19 8:34 AM) Mode of Delivery (Oxygen) Room air (10/19/19 8:34 AM) Room air (10/18/19 7:48 PM) Room air (10/18/19 7:23 PM) Blood pressure sites Arm, left (10/20/19 8:23 AM) Arm, right (10/19/19 8:34 AM) Arm, right (10/18/19 7:48 PM) Temperature Route Oral (10/19/19 8:34 AM) Oral (10/18/19 7:48 PM) Oral (10/18/19 7:23 PM) Dry Weight 68.5 kg (10/18/19 7:23 PM) Weight Obtained Via Standing scale (10/18/19 7:23 PM) Dry Weight Obtained Via Standing scale (10/18/19 7:23 PM) Sensory deficits None (10/18/19 7:23 PM) Mobility assistance Independent (10/18/19 7:23 PM)
--- OUTSIDE RECORDS SUMMARY | 2022-06-28 22:36 | XMS_ITS | Continuity of Care Document ---
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 Phone Not on Staff, PCP Primary Care Physician Unavail able Encounter [facility] [place] Date(s): 10/16/19 - 10/18/[address] [address]- [facility] Encounter Diagnosis Bipolar disorder(Final) - 10/16/19 Anxiety(Final) - 10/16/19 Discharge Disposition: Transferred to short-term general hospit Attending Physician: Amina Erwin MD Admitting Physician: Amina Erwin MD Referring Physician: Not on Staff, Referring MD Allergies, Adverse Reactions, Alerts Substance Reaction Severity Status penicillin Active Topamax Active Medications Abilify 15 mg oral tablet 7.5 mg, 0.5, tablet, By Mouth, Daily, # 30 tablet, Refills 0, Maintenance, 10/18/19 20:55:00 EDT Start Date: 10/18/19 Status: Ordered Lamictal Tablet 75 mg, By Mouth, Daily at bedtime, Refills 0, Maintenance, 10/18/19 20:56:00 EDT Start Date: 10/18/19 Status: Ordered traZODone 50 mg oral tablet 50 mg, 1, tablet, By Mouth, Daily at bedtime, PRN, # 30 tablet, Refills 0, Maintenance, Insomnia, 10/18/19 20:56:00 EDT Start Date: 10/18/19 Status: Ordered Vistaril pamoate 50 mg oral capsule 1 capsule = 50 mg, By Mouth, 2 times a day, PRN for anxiety, # 40 capsule, 0 Refills, Maintenance, 10/18/19 20:55:00 EDT, Capsule Start Date: 10/18/19 Status: Ordered Vital Signs Most recent to oldest [Reference Range]: 1 2 3 Height 165 cm (10/18/19 2:34 PM) 165 cm (10/17/19 12:06 PM) 165 cm (10/16/19 10:45 PM) Oxygen Saturation [94-100 %] 100 % (10/18/19 2:34 PM) 98 % (10/18/19 6:38 AM) 100 % (10/17/19 12:06 PM) Pulse Rate [55-90 bpm] 70 bpm (10/18/19 2:34 PM) 87 bpm (10/18/19 6:38 AM) 82 bpm (10/17/19 12:06 PM) Blood Pressure [90-138/55-84 mm Hg] 120/71mm Hg (10/18/19 2:34 PM) 100/85mm Hg (10/18/19 6:38 AM) 111/62mm Hg (10/17/19 12:06 PM) Respiratory Rate [16-30 br/min] 18 br/min (10/18/19 2:34 PM) 14 br/min *L* (10/18/19 6:38 AM) 18 br/min (10/17/19 12:06 PM) Temperature [96.8-100.4 DegF] 98 DegF (10/18/19 2:34 PM) 98.5 DegF (10/18/19 6:38 AM) 98 DegF (10/17/19 12:06 PM) Mode of Delivery (Oxygen) Room air (10/18/19 2:34 PM) Room air (10/18/19 6:38 AM) Room air (10/17/19 12:06 PM) Blood pressure sites Arm, right (10/18/19 2:34 PM) Arm, left (10/18/19 6:38 AM) Arm, left (10/17/19 12:06 PM) Temperature Route Oral (10/18/19 2:34 PM) Oral (10/18/19 6:38 AM) Oral (10/17/19 12:06 PM) Dry Weight 72 kg (10/18/19 2:34 PM) 72 kg (10/17/19 12:06 PM) 72 kg (10/16/19 10:45 PM)
[2022-06-28 22:42] LABS: MANUAL DIFF FLAG NO
[2022-06-28 22:45] LABS: Basophils Absolute Auto 0.1 X10*3/uL (0.0-0.2); Basophils Percent Auto 0.6 % (0-2); Eosinophils Absolute Auto 0.1 X10*3/uL (0.0-0.4); Eosinophils Percent Auto 0.8 % (0-4); Hematocrit 38.4 % (37.0-47.0); Hemoglobin 13.1 g/dl (12.0-16.0); Imm Gran Abs Auto 0.05 X10*3/uL (0.00-0.03); Imm Gran Pct Auto 0.3 % (0.0-0.4); Lymphocytes Absolute Auto 4.9 X10*3/uL (1.2-4.9); Lymphocytes Percent Auto 30.9 % (20-40); Mean Corpuscular HGB Conc 34.1 g/dl (31.0-35.0); Mean Corpuscular Hemoglobin 27.9 pg (27.0-33.0); Mean Corpuscular Volume 81.9 fL (80.0-98.0); Mean Platelet Volume 9.6 fL (9.4-12.3); Monocytes Absolute Auto 1.5 X10*3/uL (0.1-1.2); Monocytes Percent Auto 9.1 % (2-11); Neutrophils Absolute Auto 9.3 x10*3/uL (2.0-8.3); Neutrophils Percent Auto 58.3 % (45-73); Platelet Count 323 X10*3/uL (160-400); Red Blood Count 4.69 X10*6/uL (4.20-5.50); White Blood Count 15.9 X10*3/uL (4.8-10.8)
[2022-06-28 22:59] LABS: COVID-19 Test Negative (Negative); IDNOW Serial# 6674DD1D
[2022-06-28 23:07] LABS: Alanine Aminotransferase 17 U/L (0-31); Albumin Level 4.7 g/dL (3.5-5.0); Alkaline Phosphatase 89 U/L (39-117); Anion Gap 16 (12-20); Aspartate Amino Transferase 20 U/L (5-31); Bilirubin Total 0.6 mg/dL (0.0-1.0); Blood Urea Nitrogen 7 mg/dL (9-16); Calcium 9.7 mg/dL (8.4-10.2); Carbon Dioxide 24 mmol/L (22-29); Chloride 105 mmol/L (96-108); Creatinine Clr Calc Pharmacy 98.6; Estimated Glomerular Filt Rate > 60; Ethanol < 10 mg/dL; Glucose Random 112 mg/dL (60-115); Potassium 3.7 mmol/L (3.3-5.1); Sodium 141 mmol/L (135-145); Total Protein 7.3 g/dL (6.5-8.0)
--- NOTE | 2022-06-28 23:12 | ED.PSYCH ---
HPI - Psych General Chief Complaint: Psychiatric Symptoms Stated Complaint: si Time Seen by Provider: 06/28/22 23:02 Source: patient Mode of arrival: EMS Limitations: no limitations History of Present Illness HPI Narrative: 36-year-old female with a history of bipolar disorder who was brought to emergency department by ambulance for evaluation of suicidal ideation/suicide gesture. According to nursing notes, the patient's called 911 and reported that the patient was suicidal and was trying to kill herself by walking into traffic. The patient told me that that is not true. She told me that she has been depressed for a very long time and that she has bipolar disorder her does not understand her illness and was worried about her. She denied being suicidal or homicidal. She states she has been having difficulty sleeping over the past 2-3 days. She states that she has been compliant with her medications. Patient states that she does have a hoarse voice, rhinorrhea and a nonproductive cough. She denied fever, chills, chest pain, shortness of breath, nausea, vomiting, diarrhea, myalgias arthralgias Related Data Home Medications Medication Instructions Recorded Confirmed aripiprazole 15 mg tablet 15 mg PO DAILY 06/28/22 06/28/22 hydroxyzine pamoate 50 mg capsule 50 mg PO TID 06/28/22 06/28/22 lamotrigine 150 mg tablet 150 mg PO DAILY 06/28/22 06/28/22 trazodone 50 mg tablet 50 - 100 mg PO BEDTIME PRN insomnia 06/28/22 06/28/22 Previous Rx's Medication Instructions Recorded nicotine (polacrilex) 2 mg gum 2 mg buccal BID PRN 02/23/22 Anxiety/Restlessness 30 days #60 ea Allergies Allergy/AdvReac Type Severity Reaction Status Date / Time Penicillins [PENICILLINS] Allergy Unknown UNKNOWN Verified 10/08/21 23:06 topiramate [From TOPAMAX] Allergy Unknown UNKNOWN Verified 10/08/21 23:06 Review of Systems Review of Systems: Yes all other systems are reviewed and are negative PMFSH Past Medical History Medical History Anxiety Bipolar affective psychosis Bipolar II disorder Hypertension Manic episode Social History Social History Household Members: Spouse Household Members Other:: Spouse and six of his family members. Housing: House Do you presently have visiting nurse or other home services: No Alcohol intake: never Patient Tobacco Use Status: Current someday Tobacco user Tobacco use type: Cigarette Cigarette Packs Per Day: 0 Cigarettes Per Day: 0 Years Smoked: 12 e-Cigarette/Vaping Use: Former Use Second Hand Smoke Exposure: Yes ( smokes weed.) Substance Use Type: Marijuana Advance Directives: No Advance Directives Information Provided: No service: No Sexual orientation: Don't Know Physical Exam Vital Signs: Vital Signs: Last Vital Signs Temp 97.8 F 06/29/22 05:09 Pulse 111 H 06/29/22 05:09 Resp 16 06/29/22 05:09 BP 136/88 06/29/22 05:09 Pulse Ox 100 06/29/22 05:09 O2 Del Method Room Air 06/29/22 05:09 BMI result Body Mass Index 30.7 Const: General: cooperative and no acute distress Orientation/consciousness: oriented to person and oriented to place Limitations: no limitations HEENT: Head: Yes normal to inspection, Yes normocephalic and Yes atraumatic Ears: external ears normal General nose exam: Normal external nose present Face and sinus: Yes normal facial exam Mouth: Normal oral and palatal mucosa present Throat: Yes posterior oropharynx normal Eyes: General: appearance normal, both eyes and all related structures Pupils: Equal, round and reactive pupils present Neck: Neck: Yes normal visual inspection, Yes no lymphadenopathy, Yes trachea midline and Yes supple Chest: Chest palpation & inspection: normal inspection of the chest and normal palpation of entire chest wall Resp: Effort & Inspection: normal respiratory effort and able to speak in complete sentences Auscultation: clear to auscultation bilaterally Cardio: Rate: regular rate Rhythm: regular rhythm Heart sounds: S1 normal heart sound present, S2 normal heart sound present and no murmurs GI: Inspection: Yes normal to inspection Palpation (GI): Soft to palpation, nontender and no guarding Auscultation: normal bowel sounds : General: Yes no CVA tenderness Back/Spine/Pelvis: Back: no CVA tenderness Skin: General skin exam: no rashes or lesions noted Neuro: General: oriented to person and oriented to place Cranial nerves: Yes CN's II-XII intact bilaterally and Yes Equal, round and reactive pupils present Cognition (Neuro): normal cognition Motor exam (neuro): 5/5 motor strength present throughout Extrem: General: Yes normal to inspection Psych: Appearance: grossly normal Speech and movement: Normal speech and movement present Affect: normal affect Attitude: cooperative Thought process: Normal thought process present Thought content: Normal thought content present Medications Administered Discontinued Medications Generic Name Dose Route Start Last Admin Trade Name Virgie PRN Reason Stop Dose Admin Acetaminophen 975 mg 06/29/22 05:09 06/29/22 05:12 Acetaminophen 325 Mg Tablet PO 06/29/22 05:10 975 mg ONCE ONE Administration Ondansetron HCl 4 mg 06/29/22 06:56 06/29/22 07:01 Ondansetron Odt 4 Mg Tab.Rapdis TRANSLINGU 06/29/22 06:57 4 mg ONCE STA Administration Medical Decision Making Medical Decision Making MDM Narrative: 36-year-old female who is brought to the emergency department for evaluation of suicidal ideation and possible suicide gesture. The patient's called 911 and reported the patient was suicidal and the patient was trying to kill herself by walking into traffic. Patient denies this and states that she has been depressed but is not suicidal or homicidal. She states that she has had insomnia for the past 2-3 days as padding difficulty sleeping. She states she is depressed but she is always depressed. Patient may have a viral illness with symptoms including hoarse voice, rhinorrhea nonproductive cough. Vital signs revealed an elevated blood pressure 145/90 otherwise normal pain, patient's examination was unremarkable. I ordered a CBC, CMP, ETOH level, urine drug screen, urinalysis, urine test, COVID-19 test. Patient's medications will be reconciled in ordered. Patient will be kept in emergency department Behavioral Health Unit until appropriate disposition can be determined. 2317: My interpretation patient's laboratory evaluation as follows: CBC revealed elevated WBC 91835 with a normal differential. Patient has had similar elevations in the past. She may have a viral illness. CMP was normal. ETOH level below detectable limits. COVID-19 negative. Urine tox screen and urinalysis pending collection. 0739: Start physician observation: Patient's urine tox screen was positive for cocaine and marijuana. The patient is medically cleared for evaluation by the care team. The patient will be kept in physician observation until disposition can be determined. At the end of my shift, patient's care was turned over to my colleague, Dr. Madrigal. Differential Diagnosis Differential diagnosis includes but is not limited to viral illness, suicidal ideation, insomnia, depression, decompensation of bipolar disorder, noncompliance with medication Lab Data 06/28/22 22:37 06/28/22 22:36 Labs: Lab Results 06/28/22 06/28/22 06/28/22 Range/Units 22:26 22:36 22:37 WBC 15.9 H (4.8-10.8) X10*3/uL RBC 4.69 (4.20-5.50) X10*6/uL Hgb 13.1 (12.0-16.0) g/dl Hct 38.4 (37.0-47.0) % MCV 81.9 (80.0-98.0) fL MCH 27.9 (27.0-33.0) pg MCHC 34.1 (31.0-35.0) g/dl RDW 14.0 (11.0-16.0) % Plt Count 323 (160-400) X10*3/uL MPV 9.6 (9.4-12.3) fL Immature Gran % (Auto) 0.3 (0.0-0.4) % Neut % (Auto) 58.3 (45-73) % Lymph % (Auto) 30.9 (20-40) % [place] % (Auto) 9.1 (2-11) % Eos % (Auto) 0.8 (0-4) % Baso % (Auto) 0.6 (0-2) % Lymph # (Auto) 4.9 (1.2-4.9) X10*3/uL [place] # (Auto) 1.5 H (0.1-1.2) X10*3/uL Eos # (Auto) 0.1 (0.0-0.4) X10*3/uL Baso # (Auto) 0.1 (0.0-0.2) X10*3/uL Abs Immat Gran (auto) 0.05 H (0.00-0.03) X10*3/uL Absolute Neuts (auto) 9.3 H (2.0-8.3) x10*3/uL Absolute Nucleated RBC 0.000 (0.0-0.012) X10*3/uL Nucleated RBC % (auto) 0.0 (0.0-0.2) /100WBC Sodium 141 (135-145) mmol/L Potassium 3.7 (3.3-5.1) mmol/L Chloride 105 (96-108) mmol/L Carbon Dioxide 24 (22-29) mmol/L Anion Gap 16 (12-20) BUN 7 L (9-16) mg/dL Creatinine 0.86 (0.5-1.4) mg/dL Estim Creat Clear Calc 98.6 Estimated GFR > 60 Random Glucose 112 (60-115) mg/dL Calcium 9.7 (8.4-10.2) mg/dL Total Bilirubin 0.6 (0.0-1.0) mg/dL AST 20 (5-31) U/L ALT 17 (0-31) U/L Alkaline Phosphatase 89 (39-117) U/L Total Protein 7.3 (6.5-8.0) g/dL Albumin 4.7 (3.5-5.0) g/dL Urine Color Urine Appearance Urine pH (5.0-9.0) Ur Specific [place] (1.005-1.025) Urine Protein (Neg-Trace) mg/dL Urine Glucose (UA) (Negative) mg/dL Urine Ketones (Negative) mg/dL Urine Blood (Negative) Urine Nitrite (Negative) Ur Leukocyte Esterase (Negative) Urine Test (NEGATIVE) Urine Opiates Screen (Not Detect) Urine Fentanyl Screen (Not Detect) Ur Barbiturates Screen (Not Detect) Ur Phencyclidine Scrn (Not Detect) Ur Amphetamines Screen (Not Detect) U Benzodiazepines Scrn (Not Detect) Urine Cocaine Screen (Not Detect) U Marijuana (THC) Screen (Not Detect) Ethyl Alcohol < 10 mg/dL COVID-19 (HANDY) Negative (Negative) COVID-19 Clin Com See Note 06/29/22 06/29/22 06/29/22 Range/Units 05:21 05:21 05:21 WBC (4.8-10.8) X10*3/uL RBC (4.20-5.50) X10*6/uL Hgb (12.0-16.0) g/dl Hct (37.0-47.0) % MCV (80.0-98.0) fL MCH (27.0-33.0) pg MCHC (31.0-35.0) g/dl RDW (11.0-16.0) % Plt Count (160-400) X10*3/uL MPV (9.4-12.3) fL Immature Gran % (Auto) (0.0-0.4) % Neut % (Auto) (45-73) % Lymph % (Auto) (20-40) % [place] % (Auto) (2-11) % Eos % (Auto) (0-4) % Baso % (Auto) (0-2) % Lymph # (Auto) (1.2-4.9) X10*3/uL [place] # (Auto) (0.1-1.2) X10*3/uL Eos # (Auto) (0.0-0.4) X10*3/uL Baso # (Auto) (0.0-0.2) X10*3/uL Abs Immat Gran (auto) (0.00-0.03) X10*3/uL Absolute Neuts (auto) (2.0-8.3) x10*3/uL Absolute Nucleated RBC (0.0-0.012) X10*3/uL Nucleated RBC % (auto) (0.0-0.2) /100WBC Sodium (135-145) mmol/L Potassium (3.3-5.1) mmol/L Chloride (96-108) mmol/L Carbon Dioxide (22-29) mmol/L Anion Gap (12-20) BUN (9-16) mg/dL Creatinine (0.5-1.4) mg/dL Estim Creat Clear Calc Estimated GFR Random Glucose (60-115) mg/dL Calcium (8.4-10.2) mg/dL Total Bilirubin (0.0-1.0) mg/dL AST (5-31) U/L ALT (0-31) U/L Alkaline Phosphatase (39-117) U/L Total Protein (6.5-8.0) g/dL Albumin (3.5-5.0) g/dL Urine Color Yellow Urine Appearance Hazy Urine pH 6.0 (5.0-9.0) Ur Specific [place]on 1.025 (1.005-1.025) Urine Protein Trace (Neg-Trace) mg/dL Urine Glucose (UA) Negative (Negative) mg/dL Urine Ketones Negative (Negative) mg/dL Urine Blood Negative (Negative) Urine Nitrite Negative (Negative) Ur Leukocyte Esterase Negative (Negative) Urine Test NEGATIVE (NEGATIVE) Urine Opiates Screen Not Detected (Not Detect) Urine Fentanyl Screen Not Detected (Not Detect) Ur Barbiturates Screen Not Detected (Not Detect) Ur Phencyclidine Scrn Not Detected (Not Detect) Ur Amphetamines Screen Not Detected (Not Detect) U Benzodiazepines Scrn Not Detected (Not Detect) Urine Cocaine Screen POSITIVE H (Not Detect) U Marijuana (THC) Screen POSITIVE H (Not Detect) Ethyl Alcohol mg/dL COVID-19 (HANDY) (Negative) COVID-19 Clin Com Discharge Plan Discharge Clinical Impression: Suicidal ideation, Depression, Cocaine use disorder Patient Disposition: Still a Patient Prescriptions: No Action nicotine (polacrilex) 2 mg Gum 2 mg buccal BID PRN (Reason: Anxiety/Restlessness) 30 Days Qty: 60 0RF lamotrigine 150 mg tablet 150 mg PO DAILY trazodone 50 mg tablet 50 - 100 mg PO BEDTIME PRN (Reason: insomnia) hydroxyzine pamoate 50 mg capsule 50 mg PO TID aripiprazole 15 mg tablet 15 mg PO DAILY Interventions: [place]-Suicide Risk Severity Scale Last Done: 06/28/22 22:31
--- NOTE | 2022-06-29 04:57 | PC.NURSE ---
Patient slept through the night, no distress observed/reported, behavior non concerning, med rec completed/pending provider's approval, VSS, care consult ordered/pending evaluation, no safety concerns at this time, will continue to monitor.
[2022-06-29 05:09] VITALS: BP 136/88; PULSE 111; RESP 16; TEMP 36.6; O2SAT 100
[2022-06-29] MEDS: Acetaminophen 325 MG TABLET 975 MG PO (05:12)
[2022-06-29 05:36] LABS: Appearance Urine Hazy; Color Urine Yellow; Glucose Urine UA Negative (Negative); Leukocyte Esterase Urine Negative (Negative); Nitrite Urine Negative (Negative); Specific Gravity - Urine 1.025 (1.005-1.025); Urine Blood Negative (Negative); Urine Ketones Negative (Negative); Urine Protein Trace mg/dL (Neg-Trace)
[2022-06-29 05:42] LABS: Amphetamine Screen Urine Not Detected (Not Detect); Barbiturates, Urine Not Detected (Not Detect); Benzodiazepines Screen Urine Not Detected (Not Detect); Cannabinoid Screen Urine POSITIVE (Not Detect); Cocaine Screen Urine POSITIVE (Not Detect); Fentanyl, urine Not Detected (Not Detect); Opiate Screen Urine Not Detected (Not Detect); Phencyclidine Screen Urine Not Detected (Not Detect)
[2022-06-29 05:44] LABS: UPreg QC Valid YES; Urine Pregnancy NEGATIVE (NEGATIVE)
[2022-06-29] MEDS: Ondansetron ODT 4 MG TAB.RAPDIS TRANSLINGU ×2 (07:01→23:53)
[2022-06-29] MEDS: lamoTRIgine 25 MG TABLET 150 MG PO (12:26)
[2022-06-29] MEDS: ARIPiprazole 15 MG TABLET PO (12:26)
[2022-06-29] MEDS: hydrOXYzine HCL 50 MG TABLET PO ×2 (14:04→20:48)
[2022-06-29 14:26] VITALS: BP 121/85; PULSE 78; RESP 16; TEMP 36.2; O2SAT 98
--- NOTE | 2022-06-29 15:13 | PC.NURSE ---
pt has been polite and cooperative, spent most of the day in her room, used the phone a few times, ate lunch, c/o upset stomach after now w nad
[2022-06-29] MEDS: Acetaminophen 325 MG TABLET 650 MG PO ×2 (16:26→21:41)
[2022-06-29] MEDS: metFORMIN HCl ER 500 MG TAB.ER.24H PO (20:48)
[2022-06-29] MEDS: traZODone HCL 50 MG TABLET PO (20:54)
[2022-06-29 21:57] LABS: IDNOW Serial# 08D9AD1C; Influenza A Negative (Negative); Influenza B2 Negative (Negative)
--- NOTE | 2022-06-30 | ECG_ITS ---
Test Reason : check for prolong qt Blood Pressure : / mmHG Vent. Rate : 089 BPM Atrial Rate : 089 BPM P-R Int : 134 ms QRS Dur : 074 ms QT Int : 358 ms P-R-T Axes : 083 082 042 degrees QTc Int : 435 ms Sinus rhythm with marked sinus arrhythmia Otherwise normal ECG No previous ECGs available Referred By: Jin Ma Electronically Signed By:SWATI TIERNEY
[2022-06-30 00:11] VITALS: BP 139/92; PULSE 82; RESP 17; TEMP 36.4; O2SAT 97
--- NOTE | 2022-06-30 02:51 | PC.NURSE ---
Pt. vomiting throughout the early part of the night. Pt. given zofran. Pt. continues to be restless and complains of just not feeling well. Pt. with stuffy and runny nose. Pt. given warm blanket for comfort. Pt. most likely has a viral illness as documented by the MD.
--- NOTE | 2022-06-30 02:54 | PC.NURSE ---
Pt. authorizes Lon Woody to call her anytime and requests that we allow her to speak to him when he calls.
--- NOTE | 2022-06-30 05:24 | PC.NURSE ---
Pt. sitting up in bed, appearing to have a conversation with someone in the room, however, nobody is in the room with her. This has happened multiple times throughout the night.
--- NOTE | 2022-06-30 07:12 | PC.NURSE ---
[atient appears to remain asleep at present respirations are even and unlabored patient appears in no distress
[2022-06-30] MEDS: Metoclopramide HCl 10 MG/2 ML VIAL IM (08:01)
[2022-06-30] MEDS: lamoTRIgine 25 MG TABLET 150 MG PO (09:34)
[2022-06-30] MEDS: ARIPiprazole 15 MG TABLET PO (09:34)
[2022-06-30] MEDS: hydrOXYzine HCL 50 MG TABLET PO ×3 (09:34→21:05)
[2022-06-30] MEDS: Acetaminophen 325 MG TABLET 650 MG PO ×2 (12:58→20:18)
[2022-06-30 15:32] VITALS: BP 136/86; PULSE 92; RESP 18; TEMP 36.2
--- NOTE | 2022-06-30 17:33 | PC.ADMIT ---
Yi is a 36-year-old Ethiopian/Barbadian speaking female admitted [place] [facility] to 06/30/22 at 1635 for SI, secondary to an attempt to walk in front of oncoming cars as reported by . CV and 3-day notice signed. Psych dx: Bipolar II disorder. Pt can speak Barbadian but preferred to use a bottom ironer. Tox screen positive for cocaine and THC. Per crisis eval, pt reportedly has been exhibiting symptoms of hypomania since . Pt functioning is decompensating in her daily structure and activities. Pt reports sleep disturbance, and increased self esteem issues. Pt reports she left previous job due to issues she was having with her marriage and bipolar symptoms. Pt reports depressed mood and marijuana use daily. Pt denied SI/HI/AVH and during assessment she was alert and oriented. Pt states that she needs to be discharged before Wednesday as she has a conference she needs to attend.
[2022-06-30] MEDS: Prochlorperazine Maleate 5 MG TABLET 10 MG PO (20:18)
[2022-06-30] MEDS: Magnesium Hydrox/Alum Hydrox 30 ML ORAL.SUSP PO (20:18)
[2022-06-30 21:00] VITALS: BP 129/67; PULSE 78; TEMP 36.6; O2SAT 96
[2022-06-30] MEDS: metFORMIN HCl ER 500 MG TAB.ER.24H PO (21:05)
[2022-06-30] MEDS: Pseudoephedrine HCL 30 MG TABLET PO ×2 (21:05→22:59)
[2022-06-30] MEDS: traZODone HCL 50 MG TABLET PO ×2 (21:05→23:03)
[2022-06-30] MEDS: Prochlorperazine Maleate 5 MG TABLET PO (22:59)
--- NOTE | 2022-07-01 00:28 | PC.NURSE ---
cough-patient has persistent non productive cough. reports cough is causing her to experience a H/A. covid and influenza negative. does report seasonal allergies. sudafed ordered.
[2022-07-01] MEDS: Acetaminophen 325 MG TABLET 650 MG PO (06:14)
[2022-07-01] MEDS: Prochlorperazine Maleate 5 MG TABLET PO (06:14)
[2022-07-01] MEDS: Pseudoephedrine HCL 30 MG TABLET PO (06:14)
[2022-07-01 09:22] VITALS: BP 129/75; PULSE 86; RESP 18; TEMP 36.4; O2SAT 99
[2022-07-01] MEDS: lamoTRIgine 25 MG TABLET 150 MG PO (09:34)
[2022-07-01] MEDS: hydrOXYzine HCL 50 MG TABLET PO ×3 (09:34→21:56)
[2022-07-01] MEDS: ARIPiprazole 15 MG TABLET PO (09:34)
[2022-07-01 10:18] LABS: Estimated Average Glucose 108 mg/dL; Hemoglobin A1c % 5.4 %
[2022-07-01 10:50] LABS: Alanine Aminotransferase 19 U/L (0-31); Albumin Level 4.4 g/dL (3.5-5.0); Alkaline Phosphatase 78 U/L (39-117); Anion Gap 10 (12-20); Aspartate Amino Transferase 25 U/L (5-31); Bilirubin Total 0.5 mg/dL (0.0-1.0); Blood Urea Nitrogen 6 mg/dL (9-16); Calcium 9.4 mg/dL (8.4-10.2); Carbon Dioxide 29 mmol/L (22-29); Chloride 103 mmol/L (96-108); Cholesterol 146 mg/dL; Creatinine Clr Calc Pharmacy 113.1; Estimated Glomerular Filt Rate > 60; Glucose Fasting 102 mg/dL (60-99); HDL Cholesterol 30 mg/dL; LDL Cholesterol Calculated 87 mg/dl; Potassium 4.4 mmol/L (3.3-5.1); Sodium 138 mmol/L (135-145); Total Protein 6.7 g/dL (6.5-8.0); Triglycerides 147 mg/dL
[2022-07-01 11:19] LABS: Folate 12.2 ng/mL (> or = 4.0); Thyroid Stimulating Hormone 0.88 uIU/mL (0.32-4.0); Vitamin B12 1346 pg/mL (200-900)
--- NOTE | 2022-07-01 14:18 | P.HPPS_ITS ---
HPI Date of Service: 07/01/22 Chief Complaint: SI Sources of Information: patient interviewed, chart reviewed and crisis/core team assessment reviewed HPI Narrative: Patient is a 36-year-old female with history of bipolar disorder who presents after called 911 for patients manic, erratic behavior; pt however says she just has overwhelmed feelings due to relational strife. Patient reports that since her admission and discharge this past February she has been taking her medications which have overall been helping. Still, she finds herself getting depressed and having brief hypomanic episodes that only last 2 days. Patient reports much stress with her , saying they lives with his family who are intrusive and problematic. Patient reports that this past week, her [id number], took their mattress and she has been unable to sleep for the past 4 days. During this frustrated time combined with ongoing relational strife she and her decided to separate. Patient says her made up that she was suicidal and going to run into traffic; she says she was standing there in the room with him when he called 911 and made that up. She denies any SI at all, any HI any AVH and says she is feeling fine and just needs help with insomn ia. Patient would like to discharge soon saying she has a conference this Wednesday. Patient reports she drinks alcohol occasionally but does not abuse it; she has no idea idea why there was cocaine in her urine and denies using this at all; otherwise she smokes cannabis. Community Health Education Coordinator inquired why her would make up such a story about her being suicidal, running into traffic, disappearing, acting erratically and she says she has no idea. Per Care team note, Patient's reports her mood started changing last week, skip therapy, said she was going to cheondoism but never returned afterwards; reports she has been ignoring all her phone calls.? Patient's mother received to call that patient was manic and causing is seen at a local gas station; 1 her got there the car was banged up and patient attempted to walk in front of an oncoming car prompting him to call 911. Past Psychiatric History: IP: C x2, Hx of IP x2 in [place] OP: [facility] bipolar II Dx. Medical Evaluation Reviewed: Yes [facility] Medical History Anxiety Bipolar affective psychosis Bipolar II disorder Hypertension Manic episode Family History: pt's father had bipolar disorder and via suicide. Social History: born and raised in [place]. for 12 years, cis-gendered. 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 lives with , their two children, and 's grandfather. Substance History: cannabis; positive for cocaine but denies using this at all Trauma History: Affirms Diagnostics Vital Signs (24Hr): Vital Signs - 24 hr 06/30/22 15:32 06/30/22 21:00 07/01/22 09:22 Temperature 97.1 F 97.8 F 97.6 F Pulse Rate 92 78 86 Respiratory Rate 18 18 Blood Pressure 136/86 129/67 129/75 Pulse Oximetry 96 99 Oxygen Delivery Method Room Air Room Air Room Air BMI result Body Mass Index 30.7 Labs 06/28/22 22:37 07/01/22 09:36 Labs: Laboratory Results - last 48 hr 06/29/22 07/01/22 07/01/22 21:35 09:36 09:36 Sodium 138 Potassium 4.4 Chloride 103 Carbon Dioxide 29 Anion Gap 10 L BUN 6 L Creatinine 0.75 Estim Creat Clear Calc 113.1 Estimated GFR > 60 Fasting Glucose 102 H Estimat Average Glucose 108 Hemoglobin A1c % 5.4 Calcium 9.4 Total Bilirubin 0.5 AST 25 ALT 19 Alkaline Phosphatase 78 Total Protein 6.7 Albumin 4.4 Triglycerides 147 Cholesterol 146 LDL Cholesterol, Calc 87 HDL Cholesterol 30 Vitamin B12 1346 H Folate 12.2 TSH 0.88 Influenza Type A (ERIK) Negative Influenza Type B (ERIK) Negative Influenza A & B Note See Note Meds/Allergies Meds Home Medications Medication Instructions Recorded Confirmed Type aripiprazole 15 mg tablet 15 mg PO DAILY 06/28/22 06/28/22 History hydroxyzine pamoate 50 mg capsule 50 mg PO TID 06/28/22 06/28/22 History lamotrigine 150 mg tablet 150 mg PO DAILY 06/28/22 06/28/22 History trazodone 50 mg tablet 50 - 100 mg PO BEDTIME PRN insomnia 06/28/22 06/28/22 History metformin 500 mg tablet,extended 500 mg PO BEDTIME 06/29/22 06/29/22 History release 24 hr Allergies Allergies Allergy/AdvReac Type Severity Reaction Status Date / Time Penicillins [PENICILLINS] Allergy Unknown UNKNOWN Verified 10/08/21 23:06 topiramate [From TOPAMAX] Allergy Unknown UNKNOWN Verified 10/08/21 23:06 Mental Status Exam Mental Status Exam Narrative: Pt is alert and oriented; behavior is cooperative, friendly, hypomanic; patient is not in distress; dressed in casual attire with unkempt hair but adequate hygiene; mood is described as good and affect congruent; eye contact ap propriate; Speech is mildly pressured but normal volume and prosody; no psychomotor agitation/retardation present; thought process is mostly goal oriented but cannot logically explain discern things; Thought content is on relational strife with her ; otherwise pertinent to relevant topics and no expressed delusional content; denies any SI/HI. There is no evidence of perceptual disturbance. Patients insight and judgment appear impaired. Assessment & Plan Assessment & Plan (1) Bipolar disorder: Status: Acute Code(s): F31.9 - Bipolar disorder, unspecified Plan HPI Patient is a 36-year-old female with history of bipolar disorder who presents after called 911 for patients manic, erratic behavior; pt however says she just has overwhelmed feelings due to relational strife. Patient says her hus band made up that she was suicidal and going to run into traffic; she says she was standing there in the room with him when he called 911 and made that up. She denies any SI at all, any HI any AVH and says she is feeling fine and just needs help with insomnia. Per Care team note, Patient's reports her mood started changing last week, skip therapy, said she was going to cheondoism but never returned afterwards; reports she has been ignoring all her phone calls.? Patient's mother received to call that patient was manic and causing is seen at a local gas station; 1 her got there the car was banged up and patient attempted to walk in front of an oncoming car prompting him to call 911. Initial formulation: Patient is cooperative; she currently appears mildly hypomanic however she cannot adequately explain why her in would call 911. Patient agrees to remain on current medication and increase Lamictal to 200 mg; asks for help with insomnia and agrees to increase trazodone for now, saying it used to work quite well. Will need more collateral. Plan: CV Q 15 minute checks Continue Abilify 15 mg daily Increase Lamictal to 200 mg daily Increase trazodone to 150 mg q.h.s. Will gather more collateral Patient educated on: diagnosis, medication risk/benefits and substance abuse Informed Consent: understands, does not understand and further education needed Reason for continued inpatient stay Substantial Risk for: rapid decompensation Statement Statement: I have reviewed the history and physical and performed a pertinent examination on my patient. No changes have occurred unless specified. If the History and Physical was not performed prior to admission, the Hospitalist's service will be consulted for completing the admission physical. Time Spent With Patient Time: Total time managing care of this patient today ____ minutes.
[2022-07-01] MEDS: traZODone HCL 50 MG TABLET 150 MG PO (21:56)
[2022-07-01] MEDS: Famotidine 20 MG TABLET PO (21:56)
[2022-07-01] MEDS: metFORMIN HCl ER 500 MG TAB.ER.24H PO (21:56)
[2022-07-01] MEDS: Milk of Magnesia 30 ML ORAL.SUSP PO (22:00)
[2022-07-02 07:00] VITALS: BMI 30.3
[2022-07-02] MEDS: Prochlorperazine Maleate 5 MG TABLET PO (08:42)
[2022-07-02 08:50] VITALS: BP 126/65; PULSE 87; RESP 18; TEMP 36.8; O2SAT 98
--- NOTE | 2022-07-02 09:22 | PC.NURSE ---
Patient reports nausea/vomiting x2 weeks. Notified team re: nausea vomiting patient given compazine.
--- NOTE | 2022-07-02 09:28 | HO.PSYCHPN ---
Subjective Subjective Date of Service: 07/02/22 Reason For Visit: SI Interim History: Met with patient; Discussed with staff; patient remains stable. She reports she slept well last night. Patient continued to explain the events over the past few days and addressed each of her 's concerns. Patient agrees that a few months before, she did have a manic episode. However she says that this past week she was not manic but rather just avoiding her . She says that he did find her neighborhood that is overall not the greatest neighborhood however it is where she has worked in the past and that she was right in the parking lot of her former employer, around people she knew. She says she was talking to a male individual but that is all she was doing, talking to him and she never felt unsafe. She said she was there because she wanted to be away from her . Regarding the report that she was going to throw herself into traffic, patient said this is a gross exaggeration of the events and that while she did make a gesture as if she might do it, it was only to irritate her since she felt he was exaggerating about her impulsivity. She agrees that she he was unable to contact her for a couple of days but that was purposeful, not wanting to talk to him. She agrees that the window of her car was broken but that she found it that way and is just is bothered by it, knowing it needs to be fixed. Patient said that when she discharges she is not going to go home anymore and instead is going to stay with a friend (hari). Patient is tearful explaining that her marriage is dissolving which she sad about but says she can not deal with his lack of support and controlling behavior. Patient gave publications writer permission to discuss case with her who corroborates her story. He agrees that she was not suicidal and is not in imminent risk of harming herself; he agrees that her behaviors were mostly due to the fact that she is irritated with him and only call 911 he worried about her becoming impulsive or unsafe as she has been in the past; he agrees that she did not actually try to throw herself into traffic and that she was not in any danger. 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 Mental Status Exam Mental Status Exam Narrative: Pt is alert and oriented; behavior is cooperative, friendly, calm; patient is not in distress; dressed in casual attire, adequately groomed; mood is described as good and affect congruent; eye contact appropriate; Speech is not pressured but normal rate, volume and prosody; no psychomotor agitation/retardation present; thought process is goal oriented and organized, linear and logical; Thought content is on relational strife with her ; otherwise pertinent to relevant topics and no expressed delusional content; denies any SI/HI. There is no evidence of perceptual disturbance. Patients insight and judgment are fair and adequate Diagnostics Vital Signs (24Hr): Vital Signs - 24 hr 07/02/22 08:50 Temperature 98.3 F Pulse Rate 87 Respiratory Rate 18 Blood Pressure 126/65 Pulse Oximetry 98 Oxygen Delivery Method Room Air BMI result Body Mass Index 30.7 Labs 06/28/22 22:37 07/01/22 09:36 Labs: Laboratory Results - last 48 hr 07/01/22 07/01/22 09:36 09:36 Sodium 138 Potassium 4.4 Chloride 103 Carbon Dioxide 29 Anion Gap 10 L BUN 6 L Creatinine 0.75 Estim Creat Clear Calc 113.1 Estimated GFR > 60 Fasting Glucose 102 H Estimat Average Glucose 108 Hemoglobin A1c % 5.4 Calcium 9.4 Total Bilirubin 0.5 AST 25 ALT 19 Alkaline Phosphatase 78 Total Protein 6.7 Albumin 4.4 Triglycerides 147 Cholesterol 146 LDL Cholesterol, Calc 87 HDL Cholesterol 30 Vitamin B12 1346 H Folate 12.2 TSH 0.88 Medications Medications Current Medications Acetaminophen (Acetaminophen 325 Mg Tablet) 650 mg PO Q6H PRN PRN Reason: Headache/Pain Mild Scale (1-3) Last Admin: 07/01/22 06:14 Dose: 650 mg Al Hydroxide/Mg Hydroxide (Magnesium Hydrox/Alum Hydrox 30 Ml Oral.Susp) 30 ml PO Q6H PRN PRN Reason: Heartburn/Nausea Last Admin: 06/30/22 20:18 Dose: 30 ml Aripiprazole (Aripiprazole 15 Mg Tablet) 15 mg PO DAILY [facility] Last Admin: 07/01/22 09:34 Dose: 15 mg Famotidine (Famotidine 20 Mg Tablet) 20 mg PO BEDTIME [facility] Last Admin: 07/01/22 21:56 Dose: 20 mg Hydroxyzine HCl (Hydroxyzine Hcl 50 Mg Tablet) 50 mg PO TID [facility] Last Admin: 07/01/22 21:56 Dose: 50 mg Hydroxyzine HCl (Hydroxyzine Hcl 25 Mg Tablet) 25 mg PO Q6H PRN PRN Reason: Anxiety Lamotrigine (Lamotrigine 100 Mg Tablet) 200 mg PO DAILY [facility] Magnesium Hydroxide (Milk Of Magnesia 30 Ml Oral.Susp) 30 ml PO DAILY PRN PRN Reason: Constipation Last Admin: 07/01/22 22:00 Dose: 30 ml Metformin HCl (Metformin Hcl Er 500 Mg Tab.Er.24h) 500 mg PO BEDTIME [facility] Last Admin: 07/01/22 21:56 Dose: 500 mg Nicotine Polacrilex (Nicotine Polacrilex 2 Mg Gum) 2 mg BUCCAL BID PRN PRN Reason: Anxiety/Restlessness Pharmacy Consult (Consult Rx Perform Med Rec) 1 each MISCELLANE ONCE PRN PRN Reason: Consult order Prochlorperazine Maleate (Prochlorperazine Maleate 5 Mg Tablet) 5 mg PO QID PRN PRN Reason: Nausea Last Admin: 07/02/22 08:42 Dose: 5 mg Pseudoephedrine HCl (Pseudoephedrine Hcl 30 Mg Tablet) 30 mg PO Q6H PRN PRN Reason: Congestion Last Admin: 07/01/22 06:14 Dose: 30 mg Trazodone HCl (Trazodone Hcl 50 Mg Tablet) 150 mg PO BEDTIME [facility] Last Admin: 07/01/22 21:56 Dose: 150 mg Allergies Allergies Allergy/AdvReac Type Severity Reaction Status Date / Time Penicillins [PENICILLINS] Allergy Unknown UNKNOWN Verified 10/08/21 23:06 topiramate [From TOPAMAX] Allergy Unknown UNKNOWN Verified 10/08/21 23:06 Assessment & Plan Assessment & Plan (1) Bipolar disorder: Status: Acute Code(s): F31.9 - Bipolar disorder, unspecified Plan HPI Patient is a 36-year-old female with history of bipolar disorder who presents after called 911 for patients manic, erratic behavior; pt however says she just has overwhelmed feelings due to relational strife. Patient says her made up that she was suicidal and going to run into traffic; she says she was standing there in the room with him when he called 911 and made that up. She denies any SI at all, any HI any AVH and says she is feeling fine and just needs help with insomnia. Per Care team note, Patient's reports her mood started changing last week, skip therapy, said she was going to mandaeism but never returned afterwards; reports she has been ignoring all her phone calls.? Patient's mother received to call that patient was manic and causing is seen at a local gas station; 1 her got there the car was banged up and patient attempted to walk in front of an oncoming car prompting him to call 911. Hospital course Initial formulation: Patient is cooperative; she currently appears mildly hypomanic however she cannot adequately explain why her in would call 911. Patient agrees to remain on current medication and increase Lamictal to 200 mg; asks for help with insomnia and agrees to increase trazodone for now, saying it used to work quite well. Will need more collateral. 07/02 patient remains stable. She reports she slept well last night. Patient is organized in speech and behavior and maintains that she is safe and would like to discharge. Patient continued to explain the events over the past few days and addressed each of her 's concerns. Patient agrees that a few months before, she did have a manic episode. However she says that this past week she was not manic but rather just avoiding her . She says that he did find her neighborhood that is overall not the greatest neighborhood however it is where she has worked in the past and that she was right in the parking lot of her former employer, around people she knew. She says she was talking to a male individual but that is all she was doing, talking to him and she never felt unsafe. She said she was there because she wanted to be away from her . Regarding the report that she was going to throw herself into traffic, patient said this is a gross exaggeration of the events and that while she did make a gesture as if she might do it, it was only to irritate her since she felt he was exaggerating about her impulsivity. She agrees that she he was unable to contact her for a couple of days but that was purposeful, not wanting to talk to him. She agrees that the window of her car was broken but that she found it that way and is just is bothered by it, knowing it needs to be fixed. Patient said that when she discharges she is not going to go home anymore and instead is going to stay with a friend (hari). Patient is tearful explaining that her marriage is dissolving which she sad about but says she can not deal with his lack of support and controlling behavior. Patient gave publications writer permission to discuss case with her who corroborates her story. He agrees that she was not suicidal and is not in imminent risk of harming herself; he agrees that her behaviors were mostly due to the fact that she is irritated with him and only call 911 he worried about her becoming impulsive or unsafe as she has been in the past; he agrees that she did not actually try to throw herself into traffic and that she was not in any danger. 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 Impression: Patient remains stable and is organized both speech and behavior; though initially emotional when trying to describe the events of these past few days, patient has become much more calm and is able to logically explain herself. It turns out that her actually corroborates patient's report of these past events. Although care team notes have him reporting concern for her safety, her explains that he was worried she might become unsafe but that currently he agrees she is not in imminent risk for harm to herself or others, not suicidal and that the events of the past few days were mostly due to marital strife rather than her actually being manic. Patient remains on helpful medication. She is organized in behavior and speech, with insight and a plan for remained stable. Team has been able to conclude that Patient is not in imminent risk for harm to self or others and her request for discharge will be honored. Plan: CV Q 15 minute checks Continue Abilify 15 mg daily Increase Lamictal to 200 mg daily Increase trazodone to 150 mg q.h.s. Will gather more collateral Patient educated on: diagnosis, medication risk/benefits and therapeutic strategies Informed Consent: understands Reason for continued inpatient stay Substantial Risk for: stable for discharge Time Spent With Patient Time: Total time managing care of this patient today ____ minutes.
[2022-07-02] MEDS: ARIPiprazole 15 MG TABLET PO (09:39)
[2022-07-02] MEDS: lamoTRIgine 100 MG TABLET 200 MG PO (09:39)
[2022-07-02] MEDS: hydrOXYzine HCL 50 MG TABLET PO ×3 (09:39→21:49)
--- NOTE | 2022-07-02 11:13 | PC.NURSE ---
Patient reports no further vomiting at this time.
[2022-07-02] MEDS: Famotidine 20 MG TABLET PO ×2 (11:56→21:49)
[2022-07-02 21:45] VITALS: BP 114/78; PULSE 93; RESP 18; TEMP 36.3; O2SAT 98
[2022-07-02] MEDS: traZODone HCL 50 MG TABLET 150 MG PO (21:49)
[2022-07-02] MEDS: metFORMIN HCl ER 500 MG TAB.ER.24H PO (21:49)
[2022-07-03] MEDS: Acetaminophen 325 MG TABLET 650 MG PO (06:52)
[2022-07-03 08:30] VITALS: BP 111/74; PULSE 82; RESP 18; TEMP 36.6; O2SAT 98
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
[2022-07-03] MEDS: Famotidine 20 MG TABLET PO (09:27)
[2022-07-03] MEDS: hydrOXYzine HCL 50 MG TABLET PO (09:28)
[2022-07-03] MEDS: lamoTRIgine 100 MG TABLET 200 MG PO (09:28)
[2022-07-03] MEDS: ARIPiprazole 15 MG TABLET PO (09:28)
[2022-07-03] MEDS: Pseudoephedrine HCL 30 MG TABLET PO (09:31)
[2022-07-03] MEDS: guaiFENesin 200 MG/10 ML 10 ML LIQUID 5 ML PO (09:31)
[2022-07-03] MEDS: Naloxone HCl Nasal TAKE HOME 4 MG SPRAY NOSTRILALT (11:55)
--- NOTE | 2022-07-03 12:24 | PC.NURSE ---
PT is ready and aware of discharge . Medications appointments and instructions reviewed Pt verbalized understanding. Yi denies AH/VH/HI/SI at his time.
== END 2022-07-03 12:20 | disposition home or self-care (01) | DRG 885 ==
LOC: HO.ED 23:20 → HO.PADLT16 06-30 16:22
PROVIDERS: Emergency Medicine; Social Worker; Admitting Provider Psychiatry & Neurology Psychiatry; Emergency Provider Emergency Medicine Emergency Medical Services; Visit Provider Psychiatry & Neurology Psychiatry
DX: F31.9 Bipolar disorder, unspecified (principal); R45.851 Suicidal ideations; F41.9 Anxiety disorder, unspecified; F14.10 Cocaine abuse, uncomplicated; F17.210 Nicotine dependence, cigarettes, uncomplicated; Z71.6 Tobacco abuse counseling; Z20.822 Contact with and (suspected) exposure to COVID-19; Z91.148 Patient's other noncompliance with medication regimen for other reason; Z88.0 Allergy status to penicillin; Z88.8 Allergy status to other drugs, medicaments and biological substances; Z79.84 Long term (current) use of oral hypoglycemic drugs; Z79.899 Other long term (current) drug therapy
CPT/HCPCS: 36415; 80053; 80061; 80307; 81003; 81025; 82077; 82607; 82746; 83036; 84443; 85025; 87502; 87635; 93005; 99285; J2765; S9485

== ENCOUNTER 2022-10-14 17:48 | Inpatient (IN) | payer OTHER, SELFPAY ==
[2022-10-14 18:00] VITALS: BP 146/113; PULSE 113; RESP 20; TEMP 36.9; O2SAT 97; BMI 25.7
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
--- NOTE | 2022-10-14 18:16 | PC.NURSE ---
PT ARRIVED UNDER ERRONEOUS WITH EMS, BIRTHDATE CONFIRMED WITH FAMILY MEMBER. BIRTHDATE HAS BEEN CORRECTED BY REGISTRATION THOUGH ACCOUNTS CANNOT BE MERGED UNTIL 10/15/22.
[2022-10-14] MEDS: LORazepam 2 MG/ML VIAL IM (18:18)
[2022-10-14] MEDS: Haloperidol Lactate 5 MG/ML VIAL 10 MG IM (18:18)
[2022-10-14] MEDS: diphenhydrAMINE HCL 50 MG/ML VIAL IM (18:18)
[2022-10-14 18:22] VITALS: BP 127/73; PULSE 93; RESP 18; O2SAT 95
[2022-10-14 18:37] VITALS: BP 122/69; PULSE 97; RESP 18; O2SAT 98
[2022-10-14 18:44] VITALS: RESP 16
[2022-10-14 18:52] VITALS: RESP 18
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
--- NOTE | 2022-10-15 | ECG_ITS ---
Test Reason : PROLONGED QT WAVES Blood Pressure : / mmHG Vent. Rate : 074 BPM Atrial Rate : 074 BPM P-R Int : 136 ms QRS Dur : 076 ms QT Int : 406 ms P-R-T Axes : 033 082 057 degrees QTc Int : 450 ms Normal sinus rhythm Normal ECG When compared with ECG of 30-JUN-2022 12:12, No significant changes seen Referred By: Zohra Malik Electronically Signed By:SWATI TIERNEY
[2022-10-15 05:16] LABS: Basophils Absolute Auto 0.1 X10*3/uL (0.0-0.2); Basophils Percent Auto 0.8 % (0-2); Eosinophils Absolute Auto 0.2 X10*3/uL (0.0-0.4); Hematocrit 37.4 % (37.0-47.0); Hemoglobin 12.8 g/dl (12.0-16.0); Imm Gran Abs Auto 0.04 X10*3/uL (0.00-0.03); Imm Gran Pct Auto 0.3 % (0.0-0.4); Lymphocytes Percent Auto 56.5 % (20-40); MANUAL DIFF FLAG SCAN; Mean Corpuscular HGB Conc 34.2 g/dl (31.0-35.0); Mean Corpuscular Hemoglobin 27.6 pg (27.0-33.0); Mean Corpuscular Volume 80.6 fL (80.0-98.0); Mean Platelet Volume 9.4 fL (9.4-12.3); Monocytes Absolute Auto 0.9 X10*3/uL (0.1-1.2); Monocytes Percent Auto 7.8 % (2-11); Neutrophils Absolute Auto 3.8 x10*3/uL (2.0-8.3); Neutrophils Percent Auto 32.6 % (45-73); Platelet Count 296 X10*3/uL (160-400); Red Blood Count 4.64 X10*6/uL (4.20-5.50); Red Cell Distribution Width 14.2 % (11.0-16.0); SCAN SMEAR FLAG 1; White Blood Count 11.9 X10*3/uL (4.8-10.8)
[2022-10-15 05:19] LABS: Lymphocytes Absolute Auto 6.7 X10*3/uL (1.2-4.9)
[2022-10-15 05:21] LABS: UPreg QC Valid YES; Urine Pregnancy NEGATIVE (NEGATIVE)
[2022-10-15 05:26] LABS: Appearance Urine Clear; Color Urine Yellow; Glucose Urine UA Negative (Negative); Leukocyte Esterase Urine Negative (Negative); Nitrite Urine Negative (Negative); PH 5.5 (5.0-9.0); Urine Blood Negative (Negative); Urine Ketones Negative (Negative); Urine Protein Negative (Neg-Trace)
--- NOTE | 2022-10-15 05:26 | PC.NURSE ---
Patient was S/P physical and chemical restraint, slept through whole evening and night, just woke up, no paranoia observed, denied SI/HI/AVH, coherent, snacked, compliant with change advisor process, labs completed/compliant/pending result at this time, med rec completed/approved, care consult ordered/pending evaluation, behavior appropriate and non concerning, VSS, will continue to monitor.
[2022-10-15 05:34] LABS: Acetaminophen LAB < 17 mcg/mL (<30); Salicylate < 5.0 mg/dL (15-30)
[2022-10-15 05:35] LABS: Amphetamine Screen Urine Not Detected (Not Detect); Barbiturates, Urine Not Detected (Not Detect); Benzodiazepines Screen Urine Not Detected (Not Detect); Cannabinoid Screen Urine POSITIVE (Not Detect); Cocaine Screen Urine POSITIVE (Not Detect); Fentanyl, urine POSITIVE (Not Detect); Opiate Screen Urine Not Detected (Not Detect); Phencyclidine Screen Urine POSITIVE (Not Detect)
[2022-10-15 05:44] LABS: Alanine Aminotransferase 27 U/L (0-31); Albumin Level 4.2 g/dL (3.5-5.0); Alkaline Phosphatase 95 U/L (39-117); Anion Gap 16 (12-20); Aspartate Amino Transferase 42 U/L (5-31); Bilirubin Total 0.3 mg/dL (0.0-1.0); Blood Urea Nitrogen 10 mg/dL (9-16); Calcium 9.8 mg/dL (8.4-10.2); Carbon Dioxide 21 mmol/L (22-29); Chloride 109 mmol/L (96-108); Creatinine Clr Calc Pharmacy 91.5; Estimated Glomerular Filt Rate > 60; Ethanol < 10 mg/dL; Glucose Random 100 mg/dL (60-115); Potassium 3.5 mmol/L (3.3-5.1); Sodium 142 mmol/L (135-145); Total Protein 6.9 g/dL (6.5-8.0)
[2022-10-15 05:56] VITALS: BP 140/86; PULSE 96; RESP 16; TEMP 37; O2SAT 98
[2022-10-15 05:57] LABS: TSH reflex Free T4 2.93 uIU/mL (0.32-4.0)
[2022-10-15 06:38] LABS: SLIDE REVIEW VERIFIED
--- NOTE | 2022-10-15 07:01 | PC.NURSE ---
Pt awake, calm and cooperative at this time.
[2022-10-15 07:56] VITALS: BP 123/75; PULSE 88; RESP 14; TEMP 36.8; O2SAT 97
--- NOTE | 2022-10-15 07:59 | MHC.EDTECH ---
EKG NOT COMPLETED D/T CANCELLATION BY MD LÓPEZ T-1. RN AWARE.
[2022-10-15] MEDS: hydrOXYzine HCL 50 MG TABLET PO ×2 (09:16→20:31)
--- NOTE | 2022-10-15 09:18 | PC.NURSE ---
Pt refusing scheduled am meds, took PRN med for anxiety.
--- NOTE | 2022-10-15 11:33 | PC.NURSE ---
Pt is having no S/S of withdrawal.
--- NOTE | 2022-10-15 14:17 | PC.NURSE ---
Discussed Safety Awareness. Pt understands.
[2022-10-15 14:30] LABS: COVID-19 Test Negative (Negative); IDNOW Serial# 08D9AD1C
--- NOTE | 2022-10-15 17:30 | ECG_ITS ---
Test Reason : INCR QTC Blood Pressure : / mmHG Vent. Rate : 081 BPM Atrial Rate : 081 BPM P-R Int : 136 ms QRS Dur : 090 ms QT Int : 376 ms P-R-T Axes : 041 077 059 degrees QTc Int : 436 ms Normal sinus rhythm Normal ECG When compared with ECG of 15-OCT-2022 12:08, No significant change was found Referred By: Sánchez Bolaños Electronically Signed By:SWATI TIERNEY
[2022-10-15 18:19] VITALS: BP 129/83; PULSE 80; RESP 18; TEMP 36.6; O2SAT 99
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
[2022-10-15] MEDS: metFORMIN HCl ER 500 MG TAB.ER.24H PO (20:31)
[2022-10-15] MEDS: Famotidine 20 MG TABLET PO (20:31)
[2022-10-16] MEDS: Acetaminophen 325 MG TABLET 650 MG PO (03:34)
[2022-10-16 08:36] VITALS: BP 134/81; PULSE 89; TEMP 36.3; O2SAT 98
[2022-10-16 09:17] LABS: Estimated Average Glucose 103 mg/dL; Hemoglobin A1c % 5.2 %
--- NOTE | 2022-10-16 09:18 | P.HPPS_ITS ---
HPI Date of Service: 10/16/22 Chief Complaint: manic psychosis Sources of Information: patient interviewed, chart reviewed and crisis/core team assessment reviewed HPI Subjective Notes: Section 12B Narrative: Ms. Sauceda is a 36 year-old woman with hx of Bipolar disorder and substance use disorder including cocaine, PCP, cannabis and fentanyl. Pt was brought via EMS after police was called as pt was driving erratically and appear agitated and confused. In the ED, pt presented as combative, not able to be redirected requiring 4-point restraint and chemical restraint with haldol and ativan. Utox positive for fentanyl, PCP, cocaine and cannabinoids. On the unit, pt presents as calmer but still with limited insight. Pt reports she was brought to the hospital for no reason as she states she was not driving erratically nor there were any concerns about her behavior. Pt adamantly denies using any substances and belives this is a set up. Pt states she is in the process of getting divorce and wants to leave to [place] for good. Pt denies SI/HI. She denies VH/AH- at this point appears calmer and linear. Past Psychiatric History: IP: [facility] x2, Hx of IP x2 in [facility]. M3 06/2022 OP: [facility], [facility] bipolar II Dx. Medical Evaluation Reviewed: Yes [facility] Medical History Anxiety Bipolar affective psychosis Bipolar II disorder Hypertension Manic episode Family History: pt's father had bipolar disorder and via suicide. Social History: born and raised in [place]. for 12 years, cis-gendered. 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 lives with , their two children, and 's grandfather. Trauma History: Affirms Diagnostics Vital Signs (24Hr): Vital Signs - 24 hr 10/15/22 18:19 10/16/22 08:36 Temperature 97.9 F 97.3 F Pulse Rate 80 89 Respiratory Rate 18 Blood Pressure 129/83 134/81 Pulse Oximetry 99 98 Oxygen Delivery Method Room Air Room Air BMI result Body Mass Index 25.7 Labs 10/15/22 05:07 10/15/22 05:07 Labs: Laboratory Results - last 48 hr 10/15/22 10/15/22 10/15/22 05:07 05:07 05:07 WBC 11.9 H RBC 4.64 Hgb 12.8 Hct 37.4 MCV 80.6 MCH 27.6 MCHC 34.2 RDW 14.2 Plt Count 296 MPV 9.4 Immature Gran % (Auto) 0.3 Neut % (Auto) 32.6 L Lymph % (Auto) 56.5 H [place] % (Auto) 7.8 Eos % (Auto) 2.0 Baso % (Auto) 0.8 Lymph # (Auto) 6.7 H [place] # (Auto) 0.9 Eos # (Auto) 0.2 Baso # (Auto) 0.1 Abs Immat Gran (auto) 0.04 H Absolute Neuts (auto) 3.8 Absolute Nucleated RBC 0.000 Nucleated RBC % (auto) 0.0 Smear Tech's Comments VERIFIED Sodium 142 Potassium 3.5 Chloride 109 H Carbon Dioxide 21 L Anion Gap 16 BUN 10 Creatinine 0.79 Estim Creat Clear Calc 91.5 Estimated GFR > 60 Random Glucose 100 Estimat Average Glucose Hemoglobin A1c % Calcium 9.8 Total Bilirubin 0.3 AST 42 H ALT 27 Alkaline Phosphatase 95 Total Protein 6.9 Albumin 4.2 TSH 2.93 Urine Color Urine Appearance Urine pH Ur Specific [place] Urine Protein Urine Glucose (UA) Urine Ketones Urine Blood Urine Nitrite Ur Leukocyte Esterase Urine Test Salicylates < 5.0 L Urine Opiates Screen Urine Fentanyl Screen Acetaminophen < 17 Ur Barbiturates Screen Ur Phencyclidine Scrn Ur Amphetamines Screen U Benzodiazepines Scrn Urine Cocaine Screen U Marijuana (THC) Screen Ethyl Alcohol < 10 COVID-19 (HANDY) COVID-19 Clin Com 10/15/22 10/15/22 10/15/22 05:07 05:07 05:07 WBC RBC Hgb Hct MCV MCH MCHC RDW Plt Count MPV Immature Gran % (Auto) Neut % (Auto) Lymph % (Auto) [place] % (Auto) Eos % (Auto) Baso % (Auto) Lymph # (Auto) [place] # (Auto) Eos # (Auto) Baso # (Auto) Abs Immat Gran (auto) Absolute Neuts (auto) Absolute Nucleated RBC Nucleated RBC % (auto) Smear Tech's Comments Sodium Potassium Chloride Carbon Dioxide Anion Gap BUN Creatinine Estim Creat Clear Calc Estimated GFR Random Glucose Estimat Average Glucose Hemoglobin A1c % Calcium Total Bilirubin AST ALT Alkaline Phosphatase Total Protein Albumin TSH Urine Color Yellow Urine Appearance Clear Urine pH 5.5 Ur Specific [place] 1.020 Urine Protein Negative Urine Glucose (UA) Negative Urine Ketones Negative Urine Blood Negative Urine Nitrite Negative Ur Leukocyte Esterase Negative Urine Test NEGATIVE Salicylates Urine Opiates Screen Not Detected Urine Fentanyl Screen POSITIVE H Acetaminophen Ur Barbiturates Screen Not Detected Ur Phencyclidine Scrn POSITIVE H Ur Amphetamines Screen Not Detected U Benzodiazepines Scrn Not Detected Urine Cocaine Screen POSITIVE H U Marijuana (THC) Screen POSITIVE H Ethyl Alcohol COVID-19 (HANDY) COVID-19 Clin Com 10/15/22 10/16/22 14:11 08:50 WBC RBC Hgb Hct MCV MCH MCHC RDW Plt Count MPV Immature Gran % (Auto) Neut % (Auto) Lymph % (Auto) [place] % (Auto) Eos % (Auto) Baso % (Auto) Lymph # (Auto) [place] # (Auto) Eos # (Auto) Baso # (Auto) Abs Immat Gran (auto) Absolute Neuts (auto) Absolute Nucleated RBC Nucleated RBC % (auto) Smear Tech's Comments Sodium Potassium Chloride Carbon Dioxide Anion Gap BUN Creatinine Estim Creat Clear Calc Estimated GFR Random Glucose Estimat Average Glucose 103 Hemoglobin A1c % 5.2 Calcium Total Bilirubin AST ALT Alkaline Phosphatase Total Protein Albumin TSH Urine Color Urine Appearance Urine pH Ur Specific [place] Urine Protein Urine Glucose (UA) Urine Ketones Urine Blood Urine Nitrite Ur Leukocyte Esterase Urine Test Salicylates Urine Opiates Screen Urine Fentanyl Screen Acetaminophen Ur Barbiturates Screen Ur Phencyclidine Scrn Ur Amphetamines Screen U Benzodiazepines Scrn Urine Cocaine Screen U Marijuana (THC) Screen Ethyl Alcohol COVID-19 (HANDY) Negative COVID-19 Clin Com See Note Meds/Allergies Meds Home Medications Medication Instructions Recorded Confirmed Type aripiprazole 15 mg tablet 15 mg PO DAILY 06/28/22 06/28/22 History hydroxyzine pamoate 50 mg capsule 50 mg PO TID 06/28/22 06/28/22 History metformin 500 mg tablet,extended 500 mg PO BEDTIME 06/29/22 06/29/22 History release 24 hr aripiprazole 15 mg tablet 15 mg PO DAILY 10/14/22 10/14/22 History famotidine 20 mg tablet 20 mg PO BID 10/14/22 10/14/22 History hydroxyzine pamoate 50 mg capsule 50 mg PO TID PRN Anxiety 10/14/22 10/14/22 History lamotrigine 150 mg tablet 150 mg PO DAILY 10/14/22 10/14/22 History metformin 500 mg tablet,extended 500 mg PO BEDTIME 10/14/22 10/14/22 History release 24 hr trazodone 50 mg tablet 50 - 100 mg PO BEDTIME PRN insomnia 10/14/22 10/14/22 History Allergies Allergies Allergy/AdvReac Type Severity Reaction Status Date / Time Penicillins [PENICILLINS] Allergy Unknown UNKNOWN Verified 10/15/22 07:06 topiramate [From TOPAMAX] Allergy Unknown UNKNOWN Verified 10/15/22 07:06 Mental Status Exam Mental Status Exam Narrative: Appearance: casually groomed, improved hygiene, in NAD Behavior: superficially cooperative Psychomotor: no agitation or retardation noted Speech: clear, normal rate/rhythm/volume, spontaneous TP: linear TC: no overt psychosis or delusional content but no insight into erratic behaviors Mood: I'm fine Affect: irritable, but less agitated SI: denies HI: denies VH/AH: none Delusions: no overt reported or noted Insight/judgment: poor x 2. Memory/cog: alert, oriented x 3. Assessment & Plan Assessment & Plan (1) Bipolar II disorder with atypical features: Status: Acute Code(s): F31.81 - Bipolar II disorder (2) Cocaine use disorder, moderate, dependence: Status: Acute Code(s): F14.20 - Cocaine dependence, uncomplicated (3) Phencyclidine (PCP) use disorder, moderate: Status: Acute Code(s): F16.20 - Hallucinogen dependence, uncomplicated (4) Opioid use disorder, moderate, dependence: Status: Acute Code(s): F11.20 - Opioid dependence, uncomplicated Plan Ms. Sauceda is a 36 year-old woman with hx of Bipolar Disorder, substance use including cocaine, PCP, fentanyl and cannabinoids who was brought by police due to erractic drving and combative behaviors. Utox positive for fentanyl, cocaine, cannabinoids and PCP. Pt with no insight into concerning erradic behaviors nor use of substances affecting her behavior and mood. Pt appears calmer, but very superficial. She denies SI/HI. No overt psychosis or delusions. We discussed risks, benefits and alternative treatment options, will restart abilify and lamictal. PLAN 1. Admit to M3, CV, 15 minutes checks for safety 2. restart abilify 15mg po daily. Lamictal 50mg po qhs. 3. Obtain collateral information 4. Aftercare planning. Patient educated on: diagnosis, medication risk/benefits and substance abuse Reason for continued inpatient stay Substantial Risk for: harm to self and inability to function Statement Statement: I have reviewed the history and physical and performed a pertinent examination on my patient. No changes have occurred unless specified. If the History and Physical was not performed prior to admission, the Hospitalist's service will be consulted for completing the admission physical. Time Spent With Patient Time: Total time managing care of this patient today ____ minutes.
[2022-10-16] MEDS: ARIPiprazole 10 MG TABLET PO (09:20)
[2022-10-16] MEDS: lamoTRIgine 25 MG TABLET PO (09:20)
[2022-10-16] MEDS: hydrOXYzine HCL 50 MG TABLET PO ×2 (09:25→21:12)
[2022-10-16 09:59] LABS: Alanine Aminotransferase 29 U/L (0-31); Albumin Level 4.3 g/dL (3.5-5.0); Alkaline Phosphatase 85 U/L (39-117); Anion Gap 13 (12-20); Aspartate Amino Transferase 42 U/L (5-31); Bilirubin Total 0.3 mg/dL (0.0-1.0); Blood Urea Nitrogen 11 mg/dL (9-16); Calcium 9.7 mg/dL (8.4-10.2); Carbon Dioxide 24 mmol/L (22-29); Chloride 106 mmol/L (96-108); Cholesterol 137 mg/dL; Creatinine Clr Calc Pharmacy 107.8; Estimated Glomerular Filt Rate > 60; Glucose Fasting 103 mg/dL (60-99); HDL Cholesterol 40 mg/dL; LDL Cholesterol Calculated 78 mg/dl; Potassium 4.1 mmol/L (3.3-5.1); Sodium 139 mmol/L (135-145); Total Protein 7.1 g/dL (6.5-8.0); Triglycerides 95 mg/dL
[2022-10-16 21:00] VITALS: BP 122/84; PULSE 75; RESP 18; TEMP 36.4; O2SAT 98
[2022-10-16] MEDS: Famotidine 20 MG TABLET PO (21:12)
[2022-10-16] MEDS: metFORMIN HCl ER 500 MG TAB.ER.24H PO (21:12)
[2022-10-17 06:00] VITALS: BP 134/92; PULSE 116; RESP 18; TEMP 35.9; O2SAT 99
[2022-10-17] MEDS: Acetaminophen 325 MG TABLET 650 MG PO (07:42)
[2022-10-17] MEDS: ARIPiprazole 15 MG TABLET PO (09:05)
[2022-10-17] MEDS: Famotidine 20 MG TABLET PO ×2 (09:05→21:42)
[2022-10-17] MEDS: lamoTRIgine 25 MG TABLET 50 MG PO (09:06)
[2022-10-17] MEDS: Ibuprofen 600 MG TABLET PO ×2 (12:06→21:42)
--- NOTE | 2022-10-17 12:47 | HO.PSYCHPN ---
Subjective Subjective Date of Service: 10/17/22 Reason For Visit: manic psychosis Subjective Notes: Section 12B Interim History: Patient was seen and discussed in rounds today. Records and plans were reviewed. She has been pleasant and cooperative. She is very upset because she has a plane ticket to go back to [place] and was upset that she could not do that given that she cannot be discharged over the weekend. She was tearful but did not protest too much Review of Systems Review of Systems Yes all other systems are reviewed and are negative Mental Status Exam Mental Status Exam Narrative: In today's visit she is alert, oriented and pleasant. Normal speech. Good eye contact. Affect is appropriate and varied. No signs of psychosis. No suicidal homicidal ideations. Cognitively intact. Judgment is intact Diagnostics Vital Signs (24Hr): Vital Signs - 24 hr 10/16/22 21:00 10/17/22 06:00 Temperature 97.6 F 96.6 F L Pulse Rate 75 116 H Respiratory Rate 18 18 Blood Pressure 122/84 134/92 H Pulse Oximetry 98 99 Oxygen Delivery Method Room Air Room Air BMI result Body Mass Index 25.7 Labs 10/15/22 05:07 10/16/22 08:50 Labs: Laboratory Results - last 48 hr 10/15/22 10/16/22 10/16/22 14:11 08:50 08:50 Sodium 139 Potassium 4.1 Chloride 106 Carbon Dioxide 24 Anion Gap 13 BUN 11 Creatinine 0.67 Estim Creat Clear Calc 107.8 Estimated GFR > 60 Fasting Glucose 103 H Estimat Average Glucose 103 Hemoglobin A1c % 5.2 Calcium 9.7 Total Bilirubin 0.3 AST 42 H ALT 29 Alkaline Phosphatase 85 Total Protein 7.1 Albumin 4.3 Triglycerides 95 Cholesterol 137 LDL Cholesterol, Calc 78 HDL Cholesterol 40 COVID-19 (HANDY) Negative COVID-19 Clin Com See Note Medications Medications Current Medications Acetaminophen (Acetaminophen 325 Mg Tablet) 650 mg PO Q6H PRN PRN Reason: Headache/Pain Mild Scale (1-3) Last Admin: 10/17/22 07:42 Dose: 650 mg Al Hydroxide/Mg Hydroxide (Magnesium Hydrox/Alum Hydrox 30 Ml Oral.Susp) 30 ml PO Q6H PRN PRN Reason: Heartburn/Nausea Aripiprazole (Aripiprazole 15 Mg Tablet) 15 mg PO DAILY TARI Last Admin: 10/17/22 09:05 Dose: 15 mg Famotidine (Famotidine 20 Mg Tablet) 20 mg PO BID [facility] Last Admin: 10/17/22 09:05 Dose: 20 mg Hydroxyzine HCl (Hydroxyzine Hcl 50 Mg Tablet) 50 mg PO TID PRN PRN Reason: Anxiety Last Admin: 10/16/22 21:12 Dose: 50 mg Ibuprofen (Ibuprofen 600 Mg Tablet) 600 mg PO Q6H PRN PRN Reason: Pain, Moderate(Pain Scale 4-6) Last Admin: 10/17/22 12:06 Dose: 600 mg Lamotrigine (Lamotrigine 25 Mg Tablet) 50 mg PO DAILY [facility] Last Admin: 10/17/22 09:06 Dose: 50 mg Lorazepam (Lorazepam 1 Mg Tablet) 1 mg PO Q4H PRN PRN Reason: Anxiety/Restlessness/ Magnesium Hydroxide (Milk Of Magnesia 30 Ml Oral.Susp) 30 ml PO DAILY PRN PRN Reason: Constipation Metformin HCl (Metformin Hcl Er 500 Mg Tab.Er.24h) 500 mg PO BEDTIME [facility] Last Admin: 10/16/22 21:12 Dose: 500 mg Allergies Allergies Allergy/AdvReac Type Severity Reaction Status Date / Time Penicillins [PENICILLINS] Allergy Unknown UNKNOWN Verified 10/15/22 07:06 topiramate [From TOPAMAX] Allergy Unknown UNKNOWN Verified 10/15/22 07:06 Assessment & Plan Assessment & Plan (1) Bipolar II disorder with atypical features: Status: Acute Code(s): F31.81 - Bipolar II disorder (2) Cocaine use disorder, moderate, dependence: Status: Acute Code(s): F14.20 - Cocaine dependence, uncomplicated (3) Phencyclidine (PCP) use disorder, moderate: Status: Acute Code(s): F16.20 - Hallucinogen dependence, uncomplicated (4) Opioid use disorder, moderate, dependence: Status: Acute Code(s): F11.20 - Opioid dependence, uncomplicated Plan Ms. Sauceda is a 36 year-old woman with hx of Bipolar Disorder, substance use including cocaine, PCP, fentanyl and cannabinoids who was brought by police due to erractic drving and combative behaviors. Utox positive for fentanyl, cocaine, cannabinoids and PCP. Pt with no insight into concerning erradic behaviors nor use of substances affecting her behavior and mood. Pt appears calmer, but very superficial. She denies SI/HI. No overt psychosis or delusions. We discussed risks, benefits and alternative treatment options, will restart abilify and lamictal. PLAN 1. Admit to M3, CV, 15 minutes checks for safety 2. restart abilify 15mg po daily. Lamictal 50mg po qhs. 3. Obtain collateral information 4. Aftercare planning. 10/17: Continue current regimen and plans Reason for continued inpatient stay Substantial Risk for: harm to self and med/psych decompensation Time Spent With Patient Time: Total time managing care of this patient today ____ minutes.
[2022-10-17] MEDS: LORazepam 1 MG TABLET PO (18:38)
[2022-10-17 21:25] VITALS: BP 122/76; PULSE 72; RESP 18; TEMP 36.1; O2SAT 98
[2022-10-17] MEDS: hydrOXYzine HCL 50 MG TABLET PO (21:42)
[2022-10-17] MEDS: metFORMIN HCl ER 500 MG TAB.ER.24H PO (21:43)
[2022-10-18] MEDS: LORazepam 1 MG TABLET PO ×3 (00:44→20:48)
[2022-10-18] MEDS: Magnesium Hydrox/Alum Hydrox 30 ML ORAL.SUSP PO (00:44)
[2022-10-18 09:00] VITALS: BP 120/89; PULSE 101; RESP 16; TEMP 36.3; O2SAT 99
[2022-10-18] MEDS: Famotidine 20 MG TABLET PO ×2 (09:24→20:48)
[2022-10-18] MEDS: ARIPiprazole 15 MG TABLET PO (09:24)
[2022-10-18] MEDS: lamoTRIgine 25 MG TABLET 50 MG PO (09:24)
--- NOTE | 2022-10-18 10:43 | P.PNPSI_ITS ---
Subjective Subjective Date of Service: 10/18/22 Reason For Visit: manic psychosis Subjective Notes: Section 12B Healthcare Proxy: No Guardianship: No Interim History: Patient was seen and discussed in rounds today. Records and plans were reviewed. She is doing better and has resigned to the fact that she is going to be here a day or so more and hopefully can reclaim her ticket to [place] which she is looking forward to going. She has been safe., pacing as a way of coping. She denies any side effects. Eating and sleeping adequately. No changes were made Medication Compliance: Yes Side effects from medications: No Review of Systems Review of Systems Yes all other systems are reviewed and are negative Mental Status Exam Mental Status Exam Narrative: In today's visit she is alert, oriented and pleasant. Normal speech. Good eye contact. Affect is appropriate and varied. No signs of psychosis. No suicidal homicidal ideations. Cognitively intact. Judgment is intact Diagnostics Vital Signs (24Hr): Vital Signs - 24 hr 10/17/22 21:25 Temperature 97.0 F Pulse Rate 72 Respiratory Rate 18 Blood Pressure 122/76 Pulse Oximetry 98 Oxygen Delivery Method Room Air BMI result Body Mass Index 25.7 Labs 10/15/22 05:07 10/16/22 08:50 Medications Medications Current Medications Acetaminophen (Acetaminophen 325 Mg Tablet) 650 mg PO Q6H PRN PRN Reason: Headache/Pain Mild Scale (1-3) Last Admin: 10/17/22 07:42 Dose: 650 mg Al Hydroxide/Mg Hydroxide (Magnesium Hydrox/Alum Hydrox 30 Ml Oral.Susp) 30 ml PO Q6H PRN PRN Reason: Heartburn/Nausea Last Admin: 10/18/22 00:44 Dose: 30 ml Aripiprazole (Aripiprazole 15 Mg Tablet) 15 mg PO DAILY [facility] Last Admin: 10/18/22 09:24 Dose: 15 mg Famotidine (Famotidine 20 Mg Tablet) 20 mg PO BID [facility] Last Admin: 10/18/22 09:24 Dose: 20 mg Hydroxyzine HCl (Hydroxyzine Hcl 50 Mg Tablet) 50 mg PO TID PRN PRN Reason: Anxiety Last Admin: 10/17/22 21:42 Dose: 50 mg Ibuprofen (Ibuprofen 600 Mg Tablet) 600 mg PO Q6H PRN PRN Reason: Pain, Moderate(Pain Scale 4-6) Last Admin: 10/17/22 21:42 Dose: 600 mg Lamotrigine (Lamotrigine 25 Mg Tablet) 50 mg PO DAILY [facility] Last Admin: 10/18/22 09:24 Dose: 50 mg Lorazepam (Lorazepam 1 Mg Tablet) 1 mg PO Q4H PRN PRN Reason: Anxiety/Restlessness/ Last Admin: 10/18/22 09:24 Dose: 1 mg Magnesium Hydroxide (Milk Of Magnesia 30 Ml Oral.Susp) 30 ml PO DAILY PRN PRN Reason: Constipation Metformin HCl (Metformin Hcl Er 500 Mg Tab.Er.24h) 500 mg PO BEDTIME [facility] Last Admin: 10/17/22 21:43 Dose: 500 mg Allergies Allergies Allergy/AdvReac Type Severity Reaction Status Date / Time Penicillins [PENICILLINS] Allergy Unknown UNKNOWN Verified 10/15/22 07:06 topiramate [From TOPAMAX] Allergy Unknown UNKNOWN Verified 10/15/22 07:06 Assessment & Plan Assessment & Plan (1) Bipolar II disorder with atypical features: Status: Acute Code(s): F31.81 - Bipolar II disorder (2) Cocaine use disorder, moderate, dependence: Status: Acute Code(s): F14.20 - Cocaine dependence, uncomplicated (3) Phencyclidine (PCP) use disorder, moderate: Status: Acute Code(s): F16.20 - Hallucinogen dependence, uncomplicated (4) Opioid use disorder, moderate, dependence: Status: Acute Code(s): F11.20 - Opioid dependence, uncomplicated Plan Ms. Sauceda is a 36 year-old woman with hx of Bipolar Disorder, substance use including cocaine, PCP, fentanyl and cannabinoids who was brought by police due to erractic drving and combative behaviors. Utox positive for fentanyl, cocaine, cannabinoids and PCP. Pt with no insight into concerning erradic behaviors nor use of substances affecting her behavior and mood. Pt appears calmer, but very superficial. She denies SI/HI. No overt psychosis or delusions. We discussed risks, benefits and alternative treatment options, will restart abilify and lamictal. PLAN 1. Admit to M3, CV, 15 minutes checks for safety 2. restart abilify 15mg po daily. Lamictal 50mg po qhs. 3. Obtain collateral information 4. Aftercare planning. 10/17: Continue current regimen and plans 10/18: Continue current plans and regimen Reason for continued inpatient stay Substantial Risk for: med/psych decompensation Time Spent With Patient Time: Total time managing care of this patient today ____ minutes.
[2022-10-18] MEDS: metFORMIN HCl ER 500 MG TAB.ER.24H PO (20:48)
[2022-10-18 20:50] VITALS: BP 121/74; PULSE 112; RESP 16; TEMP 36.2; O2SAT 100
[2022-10-19] MEDS: hydrOXYzine HCL 50 MG TABLET PO ×3 (01:04→13:32)
[2022-10-19 08:00] VITALS: BP 148/77; PULSE 111; RESP 18; TEMP 36.8; O2SAT 99
[2022-10-19 08:45] VITALS: BP 129/89; PULSE 110; RESP 18; O2SAT 98
[2022-10-19] MEDS: Famotidine 20 MG TABLET PO ×2 (09:47→20:01)
[2022-10-19] MEDS: lamoTRIgine 25 MG TABLET 50 MG PO (09:47)
[2022-10-19] MEDS: ARIPiprazole 15 MG TABLET PO (09:47)
--- NOTE | 2022-10-19 10:33 | P.DS_ITS ---
DS: Providers Provider Date of Service: 10/19/22 Date of admission: 10/15/22 16:19 Primary care physician: Unknown Physician DS: Diagnosis Discharge Diagnosis (1) Bipolar II disorder with atypical features: Status: Acute (2) Cocaine use disorder, moderate, dependence: Status: Acute (3) Phencyclidine (PCP) use disorder, moderate: Status: Acute (4) Opioid use disorder, moderate, dependence: Status: Acute DS: Medications Discharge Medications Home Medications: Home Medications Medication Instructions Recorded Confirmed hydroxyzine pamoate 50 mg capsule 50 mg PO TID 06/28/22 06/28/22 Previous Rx's Medication Instructions Recorded nicotine (polacrilex) 2 mg gum 2 mg buccal BID PRN 02/23/22 Anxiety/Restlessness 30 days #60 ea trazodone 100 mg tablet 150 mg PO BEDTIME PRN insomnia 30 07/03/22 days #45 tabs aripiprazole 20 mg tablet (Abilify) 20 mg PO DAILY 30 days #30 tabs 10/19/22 famotidine 20 mg tablet 20 mg PO BID 30 days #60 tabs 10/19/22 lamotrigine 25 mg tablet 50 mg PO DAILY 30 days #60 tabs 10/19/22 metformin 500 mg tablet,extended 500 mg PO BEDTIME 30 days #30 tabs 10/19/22 release 24 hr Mental Status Exam Mental Status Exam Narrative: In today's visit she is alert, oriented and pleasant. Normal speech. Good eye contact. Affect is appropriate and varied, mild lability with some tearfulness. No signs of psychosis. No suicidal homicidal ideations, no AVH. Cognitively intact. Judgment is intact Data Data Completed and Pending Completed studies during hospitalization [Text1]: 10/15/22 10/15/22 10/15/22 05:07 05:07 05:07 WBC 11.9 H RBC 4.64 Hgb 12.8 Hct 37.4 MCV 80.6 MCH 27.6 MCHC 34.2 RDW 14.2 Plt Count 296 MPV 9.4 Immature Gran % (Auto) 0.3 Neut % (Auto) 32.6 L Lymph % (Auto) 56.5 H [place] % (Auto) 7.8 Eos % (Auto) 2.0 Baso % (Auto) 0.8 Lymph # (Auto) 6.7 H [place] # (Auto) 0.9 Eos # (Auto) 0.2 Baso # (Auto) 0.1 Abs Immat Gran (auto) 0.04 H Absolute Neuts (auto) 3.8 Absolute Nucleated RBC 0.000 Nucleated RBC % (auto) 0.0 Smear Tech's Comments VERIFIED Sodium 142 Potassium 3.5 Chloride 109 H Carbon Dioxide 21 L Anion Gap 16 BUN 10 Creatinine 0.79 Estim Creat Clear Calc 91.5 Estimated GFR > 60 Random Glucose 100 Fasting Glucose Estimat Average Glucose Hemoglobin A1c % Calcium 9.8 Total Bilirubin 0.3 AST 42 H ALT 27 Alkaline Phosphatase 95 Total Protein 6.9 Albumin 4.2 Triglycerides Cholesterol LDL Cholesterol, Calc HDL Cholesterol TSH 2.93 Urine Color Urine Appearance Urine pH Ur Specific Dewey Urine Protein Urine Glucose (UA) Urine Ketones Urine Blood Urine Nitrite Ur Leukocyte Esterase Urine Test Salicylates < 5.0 L Urine Opiates Screen Urine Fentanyl Screen Acetaminophen < 17 Ur Barbiturates Screen Lamotrigine Ur Phencyclidine Scrn Ur Amphetamines Screen U Benzodiazepines Scrn Urine Cocaine Screen U Marijuana (THC) Screen Ethyl Alcohol < 10 COVID-19 (HANDY) COVID-19 Clin Com 10/15/22 10/15/22 10/15/22 05:07 05:07 05:07 WBC RBC Hgb Hct MCV MCH MCHC RDW Plt Count MPV Immature Gran % (Auto) Neut % (Auto) Lymph % (Auto) [place] % (Auto) Eos % (Auto) Baso % (Auto) Lymph # (Auto) [place] # (Auto) Eos # (Auto) Baso # (Auto) Abs Immat Gran (auto) Absolute Neuts (auto) Absolute Nucleated RBC Nucleated RBC % (auto) Smear Tech's Comments Sodium Potassium Chloride Carbon Dioxide Anion Gap BUN Creatinine Estim Creat Clear Calc Estimated GFR Random Glucose Fasting Glucose Estimat Average Glucose Hemoglobin A1c % Calcium Total Bilirubin AST ALT Alkaline Phosphatase Total Protein Albumin Triglycerides Cholesterol LDL Cholesterol, Calc HDL Cholesterol TSH Urine Color Yellow Urine Appearance Clear Urine pH 5.5 Ur Specific [place] 1.020 Urine Protein Negative Urine Glucose (UA) Negative Urine Ketones Negative Urine Blood Negative Urine Nitrite Negative Ur Leukocyte Esterase Negative Urine Test NEGATIVE Salicylates Urine Opiates Screen Not Detected Urine Fentanyl Screen POSITIVE H Acetaminophen Ur Barbiturates Screen Not Detected Lamotrigine Ur Phencyclidine Scrn POSITIVE H Ur Amphetamines Screen Not Detected U Benzodiazepines Scrn Not Detected Urine Cocaine Screen POSITIVE H U Marijuana (THC) Screen POSITIVE H Ethyl Alcohol COVID-19 (HANDY) COVID-19 Clin Com 10/15/22 10/16/22 10/16/22 14:11 08:50 08:50 WBC RBC Hgb Hct MCV MCH MCHC RDW Plt Count MPV Immature Gran % (Auto) Neut % (Auto) Lymph % (Auto) [place] % (Auto) Eos % (Auto) Baso % (Auto) Lymph # (Auto) [place] # (Auto) Eos # (Auto) Baso # (Auto) Abs Immat Gran (auto) Absolute Neuts (auto) Absolute Nucleated RBC Nucleated RBC % (auto) Smear Tech's Comments Sodium 139 Potassium 4.1 Chloride 106 Carbon Dioxide 24 Anion Gap 13 BUN 11 Creatinine 0.67 Estim Creat Clear Calc 107.8 Estimated GFR > 60 Random Glucose Fasting Glucose 103 H Estimat Average Glucose 103 Hemoglobin A1c % 5.2 Calcium 9.7 Total Bilirubin 0.3 AST 42 H ALT 29 Alkaline Phosphatase 85 Total Protein 7.1 Albumin 4.3 Triglycerides 95 Cholesterol 137 LDL Cholesterol, Calc 78 HDL Cholesterol 40 TSH Urine Color Urine Appearance Urine pH Ur Specific [place]wey Urine Protein Urine Glucose (UA) Urine Ketones Urine Blood Urine Nitrite Ur Leukocyte Esterase Urine Test Salicylates Urine Opiates Screen Urine Fentanyl Screen Acetaminophen Ur Barbiturates Screen Lamotrigine Ur Phencyclidine Scrn Ur Amphetamines Screen U Benzodiazepines Scrn Urine Cocaine Screen U Marijuana (THC) Screen Ethyl Alcohol COVID-19 (HANDY) Negative COVID-19 Clin Com See Note 10/16/22 08:50 WBC RBC Hgb Hct MCV MCH MCHC RDW Plt Count MPV Immature Gran % (Auto) Neut % (Auto) Lymph % (Auto) [place] % (Auto) Eos % (Auto) Baso % (Auto) Lymph # (Auto) [place] # (Auto) Eos # (Auto) Baso # (Auto) Abs Immat Gran (auto) Absolute Neuts (auto) Absolute Nucleated RBC Nucleated RBC % (auto) Smear Tech's Comments Sodium Potassium Chloride Carbon Dioxide Anion Gap BUN Creatinine Estim Creat Clear Calc Estimated GFR Random Glucose Fasting Glucose Estimat Average Glucose Hemoglobin A1c % Calcium Total Bilirubin AST ALT Alkaline Phosphatase Total Protein Albumin Triglycerides Cholesterol LDL Cholesterol, Calc HDL Cholesterol TSH Urine Color Urine Appearance Urine pH Ur Specific [place] Urine Protein Urine Glucose (UA) Urine Ketones Urine Blood Urine Nitrite Ur Leukocyte Esterase Urine Test Salicylates Urine Opiates Screen Urine Fentanyl Screen Acetaminophen Ur Barbiturates Screen Lamotrigine Pending Ur Phencyclidine Scrn Ur Amphetamines Screen U Benzodiazepines Scrn Urine Cocaine Screen U Marijuana (THC) Screen Ethyl Alcohol COVID-19 (HANDY) COVID-19 Clin Com DS: Summary Hospital Course Hospital Course: per 10/16 admission note: Ms. Sauceda is a 36 year-old woman with hx of Bipolar disorder and substance use disorder including cocaine, PCP, cannabis and fentanyl. Pt was brought via EMS after police was called as pt was driving erratically and appear agitated and confused. In the ED, pt presented as combative, not able to be redirected requiring 4-point restraint and chemical restraint with haldol and ativan. Utox positive for fentanyl, PCP, cocaine and cannabinoids. On the unit, pt presents as calmer but still with limited insight. Pt reports she was brought to the hospital for no reason as she states she was not driving erratically nor there were any concerns about her behavior. Pt adamantly denies using any substances and belives this is a set up. Pt states she is in the process of getting divorce and wants to leave to [place] for good. Pt denies SI/HI. She denies VH/AH- at this point appears calmer and linear. Past Psychiatric History: IP: C x2, Hx of IP x2 in [facility]. M3 06/2022 OP: [facility], [facility] bipolar II Dx. Medical Evaluation Reviewed: Yes [facility] Medical History? Anxiety Bipolar affective psychosis Bipolar II disorder Hypertension Manic episode Family History: pt's father had bipolar disorder and via suicide. Social History: born and raised in [place]. for 12 years, cis-gendered. 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 lives with , their two children, and 's grandfather. Trauma History: Affirms 10/17: Patient was seen and discussed in rounds today.? Records and plans were reviewed.? She has been pleasant and cooperative.? She is very upset because she has a plane ticket to go back to [place] and was upset that she could not do that given that she cannot be discharged over the weekend.? She was tearful but did not protest too much 10/18: Patient was seen and discussed in rounds today.? Records and plans were reviewed.? She is doing better and has resigned to the fact that she is going to be here a day or so more and hopefully can reclaim her ticket to [place] which she is looking forward to going.? She has been safe., pacing as a way of coping.? She denies any side effects.? Eating and sleeping adequately.? No changes were made Precis: Ms. Sauceda is a 36 year-old woman with hx of Bipolar Disorder, substance use including cocaine, PCP, fentanyl and cannabinoids who was brought by police due to erratic driving and combative behaviors. Utox positive for fentanyl, cocaine, cannabinoids and PCP. Pt with no insight into concerning erratic behaviors nor use of substances affecting her behavior and mood. Pt appears calmer, but very superficial. She denies SI/HI. No overt psychosis or delusions. We discussed risks, benefits and alternative treatment options, will restart abilify and lamictal. 10/16: restart abilify 15mg po daily. Lamictal 50mg po qhs. 10/17: Continue current regimen and plans 10/18: Continue current plans and regimen 10/19: somewhat irritable, taking meds, asking for discharge LINDSEY. no concerning behaviors over the weekend, does appear hypo-manic. denies substance use other than cannabis despite laboratory evidence to the contrary. 12b up tomorrow, does not appear committable at present. 10/20: stable, no events overnight. discharged as per plan. Time Spent with Patient Time attestation: Total time managing care of this patient today ____ minutes. Time spent: Greater than 30 minutes Discharge Plan Discharge Anticipated Discharge Date/Time: 10/20/22 10:00 Patient Disposition: Home, Self-Care Discharge Diagnosis: Bipolar II Disorder Referrals: Nadya Rhodes (Therapy) [Other] - 11/02/22 1:30 pm (Your appointment will take place over the phone) Christy Herring (Psychiatry) [Other] - 10/26/22 1:30 pm (IN OFFICE APPOINTMENT) Physician,Unknown J [Primary Care Provider] - 1 Week Discharge Medications: New lamotrigine 25 mg Tablet 50 mg PO DAILY 30 Days Qty: 60 0RF aripiprazole [Abilify] 20 mg tablet 20 mg PO DAILY 30 Days Qty: 30 0RF Continued nicotine (polacrilex) 2 mg Gum 2 mg buccal BID PRN (Reason: Anxiety/Restlessness) 30 Days Qty: 60 0RF famotidine 20 mg Tablet 20 mg PO BID 30 Days Qty: 60 1RF metformin 500 mg tablet extended release 24 hr 500 mg PO BEDTIME 30 Days Qty: 30 0RF hydroxyzine pamoate 50 mg capsule 50 mg PO TID trazodone 100 mg tablet 150 mg PO BEDTIME PRN (Reason: insomnia) 30 Days Qty: 45 1RF Discontinued lamotrigine 150 mg tablet 150 mg PO DAILY hydroxyzine pamoate 50 mg capsule 50 mg PO TID PRN (Reason: Anxiety) metformin 500 mg tablet extended release 24 hr 500 mg PO BEDTIME aripiprazole 15 mg tablet 15 mg PO DAILY trazodone 50 mg tablet 50 - 100 mg PO BEDTIME PRN (Reason: insomnia) famotidine 20 mg tablet 20 mg PO BID aripiprazole 15 mg tablet 15 mg PO DAILY lamotrigine 100 mg Tablet 200 mg PO DAILY 30 Days Qty: 60 1RF Discharge Orders: Discharge Order (Routine); Ordered 10/20/22 Ordered By: Villa Hdz Diet: Diabetic diet Activity on Discharge: As tolerated Stand Alone Forms: Patient Portal Discharge page, Community Support Care Plan Goals: remain safe, stable, and sober in the outpatient treatment setting Health Concerns: Diabetes Mellitus Plan of Treatment: take medications as prescribed, attend appointments as scheduled Assessment: not at imminent risk of harm to self or others Discharge Date/Time: 10/20/22 10:18
[2022-10-19] MEDS: Acetaminophen 325 MG TABLET 650 MG PO (11:02)
[2022-10-19 11:06] VITALS: BP 141/96; PULSE 115; RESP 18
[2022-10-19 18:00] VITALS: BP 119/76; PULSE 74; RESP 16; TEMP 36.6; O2SAT 98
[2022-10-19] MEDS: metFORMIN HCl ER 500 MG TAB.ER.24H PO (20:01)
[2022-10-19] MEDS: Magnesium Hydrox/Alum Hydrox 30 ML ORAL.SUSP PO (22:46)
[2022-10-20] MEDS: hydrOXYzine HCL 50 MG TABLET PO (02:38)
[2022-10-20 08:00] VITALS: BP 129/93; PULSE 103; RESP 18; TEMP 36.7; O2SAT 99
[2022-10-20] MEDS: Acetaminophen 325 MG TABLET 650 MG PO (08:16)
[2022-10-20] MEDS: ARIPiprazole 20 MG TABLET PO (08:16)
[2022-10-20] MEDS: Famotidine 20 MG TABLET PO (08:16)
[2022-10-20] MEDS: lamoTRIgine 25 MG TABLET 50 MG PO (08:17)
[2022-10-20 22:23] LABS: Lamotrigine Lamictal <0.5 mcg/mL (2.5-15.0)
== END 2022-10-20 10:18 | disposition home or self-care (01) | DRG 753 ==
LOC: HO.ED 21:55 → HO.PADLT16 10-15 16:24
PROVIDERS: Admitting Provider Psychiatry & Neurology Psychiatry; Emergency Provider Emergency Medicine Emergency Medical Services; Visit Provider Psychiatry & Neurology Psychiatry
DX: F31.81 Bipolar II disorder (principal); R45.851 Suicidal ideations; I10 Essential (primary) hypertension; F17.210 Nicotine dependence, cigarettes, uncomplicated; F14.20 Cocaine dependence, uncomplicated; F16.20 Hallucinogen dependence, uncomplicated; F11.20 Opioid dependence, uncomplicated; Z20.822 Contact with and (suspected) exposure to COVID-19; Z71.6 Tobacco abuse counseling; Z88.0 Allergy status to penicillin; Z79.84 Long term (current) use of oral hypoglycemic drugs; Z79.899 Other long term (current) drug therapy
CPT/HCPCS: 36415; 80053; 80061; 80143; 80175; 80179; 80307; 81003; 81025; 83036; 84443; 85025; 87635; 93005; 99285; J1200; J2060; S9485

== ENCOUNTER → 2022-10-15 12:08 | Outpatient (BNV) | payer OTHER, SELFPAY | PROVIDERS: Admitting Provider Psychiatry & Neurology Psychiatry; Emergency Provider Emergency Medicine Emergency Medical Services; Visit Provider Internal Medicine | DX: I45.81 Long QT syndrome (principal) | CPT/HCPCS: 93010 ==

== ENCOUNTER → 2022-10-15 16:19 | Outpatient (BNV) | payer OTHER, SELFPAY | PROVIDERS: Admitting Provider Psychiatry & Neurology Psychiatry; Emergency Provider Emergency Medicine Emergency Medical Services; Visit Provider Psychiatry & Neurology Psychiatry | DX: F31.81 Bipolar II disorder (principal); F14.20 Cocaine dependence, uncomplicated; F16.20 Hallucinogen dependence, uncomplicated; F11.20 Opioid dependence, uncomplicated | CPT/HCPCS: 90792; 99231; 99239 ==